=== PATIENT | female | born 1955 | race Caucasian/White ===

== ENCOUNTER → 2017-10-16 11:46 | Outpatient (CLI) | payer OTHER, SELFPAY ==
--- NOTE | 2017-10-16 11:53 | RAD_ITS ---
STUDY: X-RAY - RIGHT RADIUS AND ULNA REASON FOR EXAM: Female, 62 years old. Midforearm pain TECHNIQUE: 2 view(s) of the forearm. COMPARISON: None. FINDINGS: There is no demonstrated soft tissue swelling. Normal visualized radius. 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 The right radius and ulna are otherwise unremarkable. Electronically Signed: Conrad Worley MD at 21:07 EDT , Service support ,
== END ==
PROVIDERS: Family Provider Internal Medicine; PCP Internal Medicine; Visit Provider Internal Medicine
DX: M79.631 Pain in right forearm (principal)
CPT/HCPCS: 73090

== ENCOUNTER → 2019-08-02 13:48 | Outpatient (CLI) | payer MEDICARE, OTHER, SELFPAY ==
[2019-07-25 11:14] VITALS: BMI 24.7
--- NOTE | 2019-08-02 13:52 | BI_ITS ---
MAMMOGRAPHY - BILATERAL SCREENING REASON FOR EXAM: Female, 64 years old. Routine annual screening examination. PERTINENT HISTORY: Non-contributory. TECHNIQUE: Digital bilateral breast vargas (3D mammographic acquisition) in the CC and MLO projections. 2-D mediolateral oblique (MLO) and craniocaudad (CC) views of both breasts were obtained. CAD: Full Field Digital Mammography with Computer Added Detection was performed. COMPARISON: Comparison is made with prior examination is March 15, 2016 and December 27, 2012. FINDINGS: Breast Composition: The breasts are heterogeneously dense, which may obscure small masses. There are no dominant masses or suspicious calcifications. Stable small bilateral axillary lymph nodes. A pacemaker battery pack is seen in the right axillary region. No other significant abnormalities are identified. There has been no significant change since the prior study. BI/SCREEN MAMM (CAD) W/VARGAS BILAT IMPRESSION: Stable bilateral screening mammogram. Yearly follow-up mammogram recommended. (A) ASSESSMENT CATEGORY: BIRADS Category 2: Benign. A letter regarding these results will be sent to the patient by the facility within 30 days. Approximately 10% of breast cancers are not detected by mammography. A normal mammogram should not delay biopsy of a clinically suspicious abnormality. [id number] Electronically Signed: Israel Mazariegos, at 14:55 EST , Service support ,
== END ==
PROVIDERS: PCP Internal Medicine; Referring Provider Internal Medicine; Visit Provider Internal Medicine
DX: Z12.31 Encounter for screening mammogram for malignant neoplasm of breast (principal)
CPT/HCPCS: 77063; 77067

== ENCOUNTER → 2019-11-11 14:34 | Outpatient (CLI) | payer MEDICARE, OTHER, SELFPAY ==
[2019-07-25 11:14] VITALS: BMI 24.7
--- NOTE | 2019-11-11 14:44 | RAD_ITS ---
STUDY: X-RAY CHEST REASON FOR EXAM: Female, 64 years old. PATIENT STATES HAVING HER PPM GENERATOR CHANGED. ORIGINAL PLACEMENT 2002. TECHNIQUE: PA and lateral views of the chest. COMPARISON: Comparison is made with prior examination March 02, 2016. FINDINGS: Hyperinflation. Scattered calcified granulomas. There is no demonstrated pleural abnormality. Normal size heart. A left-sided dual-chamber pacemaker is seen. Normal mediastinum and aristeo. Normal visualized pulmonary arteries. There is atherosclerotic tortuosity of the aortic arch and descending thoracic aorta. There are mild degenerative changes of the visualized thoracic spine. Normal visualized ribs, clavicles, and shoulders. There is no demonstrated abnormality of the visualized soft tissue structures of the upper abdomen. RAD/Chest PA and Lateral IMPRESSION: Hyperinflation. The lungs are clear. Electronically Signed: Israel Mazariegos, at 15:37 EDT , Service support ,
[2019-11-11 15:54] LABS: International Normalized Ratio 1.1; Prothrombin Time (Protime)PT. 13.5 SECONDS (11.7-14.9)
[2019-11-11 15:59] LABS: Anion Gap 7 (5-15); BUN 14 mg/dL (7-18); BUN/Creat Ratio 22.8 RATIO (10-20); Calcium,Total 9.2 mg/dL (8.5-10.1); Chloride 108 mmol/L (98-107); Creatinine, Serum 0.61 mg/dL (0.55-1.02); EST Glomerular Filtration Rate 104 mL/min (>60); Est Glom Filt Rate - Afr Amer 126 mL/min (>60); Glucose 103 mg/dL (74-106); Potassium 3.7 mmol/L (3.5-5.1); Sodium Level 138 mmol/L (136-145)
== END ==
PROVIDERS: PCP Internal Medicine; Visit Provider Internal Medicine Cardiovascular Disease
DX: I49.5 Sick sinus syndrome (principal); R55 Syncope and collapse; Z95.0 Presence of cardiac pacemaker; I47.1 Supraventricular tachycardia
CPT/HCPCS: 36415; 71046; 80048; 85610

== ENCOUNTER 2019-11-29 09:45 | Day surgery (SDC) | payer MEDICARE, OTHER, SELFPAY ==
[2019-07-25 11:14] VITALS: BMI 24.7
[2019-11-18 10:14] VITALS: BMI 25.2
--- NOTE | 2019-11-18 12:26 | HP_ITS ---
HPI HPI History of Present Illness Surgical H&P: Yes Details: KHARI DYSON, is a 64 year old white female who presents to the office today for for outpatient cardiovascular follow-up of her history of underlying syncope, sick sinus syndrome, and permanent pacemaker placement. Patient's dual-chamber pacemaker evaluation from 11/11/2019 showed the battery has reached ERT on 10/31/2019. She is scheduled undergo generator change on 11/29/[address] Samuels. She denies chest, arm, jaw, or neck discomfort. Her exercise tolerance is stable. She denies symptoms of CHF, palpitations, lightheadedness, dizziness, near syncope, or syncopal episodes. She denies edema or claudication issues. She denies orthopnea, PND, fever, chills, blood in urine, blood in stool, myalgia, or unexplainable fatigue. Intake Vital Signs 11/18/19 Height 5 ft 11/18/19 Weight: 129 lb 11/18/19 BMI 25.2 11/18/19 BP 145/85 H 11/18/19 Blood Pressure Location Lt brachial 11/18/19 Position Sitting 11/18/19 Respiration 18 11/18/19 Pulse 66 11/18/19 Pulse Source Monitor 11/18/19 Pulse Oximetry (%) 97 Intake Visit Reasons: H&P FOR GEN CHANGE Medicare Nurse Required: No Accompanied by: None Is patient in pain?: No Allergies enoxaparin sodium [From Lovenox] Allergy (Verified 11/18/19 10:14) Anaphylaxis Sulfa (Sulfonamide Antibiotics) Allergy (Verified 11/18/19 10:14) Rash Medications losartan 50 mg tablet 50 mg PO BID tab 10/04/17 [History Confirmed 11/18/19] metoprolol succinate 100 mg tablet,extended release 24 hr 100 mg PO QDAY #90 tab 02/08/18 [Rx Confirmed 11/18/19] levothyroxine 88 mcg tablet 88 mcg PO QDAY 02/14/18 [History Confirmed 11/18/19] paroxetine HCl 10 mg tablet 10 mg PO QDAY 02/19/18 [History Confirmed 11/18/19] amlodipine 10 mg tablet 10 mg PO QDAY #90 tab 04/23/18 [Rx Confirmed 11/18/19] atorvastatin 20 mg tablet 20 mg PO QHS #90 tab 04/23/18 [Rx Confirmed 11/18/19] hydrochlorothiazide 12.5 mg tablet 12.5 mg PO DAILY #90 tab 11/18/19 [Rx Confirmed 11/18/19] liothyronine 5 mcg tablet 5 mcg PO DAILY 11/18/19 [History Confirmed 11/18/19] [facility] Social History (Updated 11/18/19 @ 12:26 by DAWIT Mahajan) Smoking Status: Current some day smoker alcohol intake: current substance use type: does not use ROS Const Const: Negative for fatigue, weakness, body ache, fever(s) or chills ENT ENT: Negative for dizziness Cardio Chest Pain: No Palpitations: No Edema: None Muscle aches with walking: None Resp Respiratory: Negative for SOB with activity, SOB at rest, SOB orthopnea\SOB lying down or paroxysmal nocturnal dyspnea GI GI: Negative nausea, vomiting blood/hematemesis, bright, red blood in stools or black,tarry stools : Negative for hematuria or frequent nighttime urination/ nocturia Musc Musc: Negative for muscle aches/ myalgia Skin Skin: Negative non-healing lesions or rash Neuro Neuro: Negative for dizziness, lightheadedness, near syncope, syncope, orthostatic symptoms or weakness Endo Endo: Negative for fatigue Allergy Allergy/Immunology: Negative for rash Cardiology Exam Const Appearance: cooperative, healthy appearing, comfortable and no acute distress Nutritional Appearance: average body habitus and well nourished Orientation: alert, awake and oriented x3 Head Head: normal to inspection Ears: hearing grossly normal bilaterally Nose: external nose normal Face and Sinus: face symmetric Mouth: oral mucosae normal Eyes General: appearance normal, both eyes and all related structures Eyelids: eyelids normal EOM: EOM intact bilaterally Neck Neck: normal visual inspection and no JVD Carotids: normal carotid upstroke Chest Chest inspection: normal inspection of the chest, symmetric chest movement and normal respiratory effort; negative cough Auscultation: Bilateral: Clear to Auscultation Cardio Rate: regular rate Rhythm: regular rhythm Heart sounds: S1 normal and S2 normal; negative rub, gallop or murmur GI GI: normal to inspection Neuro General: alert, awake, oriented x3 and CN's II-XI intact bilaterally Skin Skin: no rashes or lesions noted Extremities Pulses: Normal: Right Posterior Tibial Pulse, Left Posterior Tibial Pulse, Right Radial Pulse, Left Radial Pulse Lower Extremity Edema: None: Bilateral Psych Psychological: normal affect Assessment & Plan 1. Sick sinus syndrome I49.5 Plan Patient is status post permanent pacemaker for this. Orders Orders: 12 Lead EKG performed by [facility] Today 2. Presence of cardiac pacemaker Z95.0 Plan Her most recent pacemaker evaluation shows that she has achieved GUME on 10/31/2019. She will proceed with generator change. She will continue to follow with pacemaker clinic on a routine basis. Orders Orders: 12 Lead EKG performed by [facility] Today 3. Essential (primary) hypertension I10 Plan Patient's blood pressure is well-controlled today in the office. We will continue to monitor this. We will not make any medication regimen changes. 4. Hyperlipidemia, unspecified hyperlipidemia type E78.5 Plan She will continue current statin medication. 5. Syncope and collapse R55 Plan There has not been any reoccurrence. At this time her blood pressure and heart rate are stable. We will continue to monitor. Orders Orders: 12 Lead EKG performed by [facility] Today Plan Detail Other Medications New: hydrochlorothiazide 12.5 mg PO DAILY 90 tabs 6RF Additional Comments Thank you for allowing us to participate in the patients plan of care, if you have any questions please do not hesitate to call. This note was generated using a voice recognition system and there may be incorrect words, spelling or punctuation that were not noted when reviewing the office note prior to saving. Follow Up keep as is Coding Level of Care Code Off vis,est,level 3 Diagnoses Sick sinus syndrome I49.5 Presence of cardiac pacemaker Z95.0 Essential (primary) hypertension I10 Hyperlipidemia, unspecified hyperlipidemia type E78.5 ??Hyperlipidemia type: unspecified Syncope and collapse R55 Coding Level of Care Code Off vis,est,level 3 Diagnoses Sick sinus syndrome I49.5 Presence of cardiac pacemaker Z95.0 Essential (primary) hypertension I10 Hyperlipidemia, unspecified hyperlipidemia type E78.5 ??Hyperlipidemia type: unspecified Syncope and collapse R55 Supplemental Info Supplemental Information Echocardiogram from 11/12/2013: Impressions: Left ventricle: Normal in size. Wall thickness is normal. LV function is normal. There are no segmental abnormalities. Ejection fraction is normal, estimated at 60-65%. All chambers are normal in size. Mild mitral insufficiency, mild pulmonic valve insufficiency and mild tricuspid valve insufficiency. Estimated right ventricular systolic pressure is normal at 30 mmHg. No mitral valve prolapse. No pericardial effusion. Stress echocardiogram from 11/30/2009: Conclusions Exercise stress echo is negative for ischemia at 98% maximum predicted heart rate at 10.2 METS. Labs LDL Cholesterol 110 mg/dL (0-130) 10/12/15 HDL Cholesterol 98 mg/dL (40-) 10/12/15 Triglycerides 97 mg/dL (-199) 10/12/15 VLDL Cholesterol 19 mg/dL (5-40) 10/12/15 Diagnostics Electrocardiogram 11/18/19 Pacemaker Check 11/11/19 Chest X-Ray 11/11/19 11/18/19 1226 <Electronically signed by Willis Wise N PDeanne> Date _ Willis Wise [employer]
--- NOTE | 2019-11-27 11:11 | HP.PCM_ITS ---
History and Physical Date of Admission: 11/29/19 KHARI DYSON is a 64 year old white female who presents to [facility] today for for outpatient cardiovascular follow-up of her history of underlying syncope, sick sinus syndrome, and permanent pacemaker placement. Patient's dual-chamber pacemaker evaluation from 11/11/2019 showed the battery has reached ERT on 10/31/2019. She is scheduled undergo generator change on 11/29/[address] Samuels today. She denies chest, arm, jaw, or neck discomfort. Her exercise tolerance is stable. She denies symptoms of CHF, palpitations, lightheadedness, dizziness, near syncope, or syncopal episodes. She denies edema or claudication issues. She denies orthopnea, PND, fever, chills, blood in urine, blood in stool, myalgia, or unexplainable fatigue. 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 Accompanied by: None Is patient in pain?: No Allergies enoxaparin sodium [From Lovenox] Allergy (Verified 11/18/19 10:14) Anaphylaxis Sulfa (Sulfonamide Antibiotics) Allergy (Verified 11/18/19 10:14) Rash Medications losartan 50 mg tablet 50 mg PO BID tab 10/04/17 [History Confirmed 11/18/19] metoprolol succinate 100 mg tablet,extended release 24 hr 100 mg PO QDAY #90 tab 02/08/18 [Rx Confirmed 11/18/19] levothyroxine 88 mcg tablet 88 mcg PO QDAY 02/14/18 [History Confirmed 11/18/19] paroxetine HCl 10 mg tablet 10 mg PO QDAY 02/19/18 [History Confirmed 11/18/19] amlodipine 10 mg tablet 10 mg PO QDAY #90 tab 04/23/18 [Rx Confirmed 11/18/19] atorvastatin 20 mg tablet 20 mg PO QHS #90 tab 04/23/18 [Rx Confirmed 11/18/19] hydrochlorothiazide 12.5 mg tablet 12.5 mg PO DAILY #90 tab 11/18/19 [Rx Confirmed 11/18/19] liothyronine 5 mcg tablet 5 mcg PO DAILY 11/18/19 [History Confirmed 11/18/19] [facility] Social History (Updated 11/18/19 @ 12:26 by DAWIT Mahajan) Smoking Status: Current some day smoker alcohol intake: current substance use type: does not use ROS Const Const: Negative for fatigue, weakness, body ache, fever(s) or chills ENT ENT: Negative for dizziness Cardio Chest Pain: No Palpitations: No Edema: None Muscle aches with walking: None Resp Respiratory: Negative for SOB with activity, SOB at rest, SOB orthopnea\SOB lying down or paroxysmal nocturnal dyspnea GI GI: Negative nausea, vomiting blood/hematemesis, bright, red blood in stools or black,tarry stools : Negative for hematuria or frequent nighttime urination/ nocturia Musc Musc: Negative for muscle aches/ myalgia Skin Skin: Negative non-healing lesions or rash Neuro Neuro: Negative for dizziness, lightheadedness, near syncope, syncope, orthostatic symptoms or weakness Endo Endo: Negative for fatigue Allergy Allergy/Immunology: Negative for rash Cardiology Exam Const Appearance: cooperative, healthy appearing, comfortable and no acute distress Nutritional Appearance: average body habitus and well nourished Orientation: alert, awake and oriented x3 Head Head: normal to inspection Ears: hearing grossly normal bilaterally Nose: external nose normal Face and Sinus: face symmetric Mouth: oral mucosae normal Eyes General: appearance normal, both eyes and all related structures Eyelids: eyelids normal EOM: EOM intact bilaterally Neck Neck: normal visual inspection and no JVD Carotids: normal carotid upstroke Chest Chest inspection: normal inspection of the chest, symmetric chest movement and normal respiratory effort; negative cough Auscultation: Bilateral: Clear to Auscultation Cardio Rate: regular rate Rhythm: regular rhythm Heart sounds: S1 normal and S2 normal; negative rub, gallop or murmur GI GI: normal to inspection Neuro General: alert, awake, oriented x3 and CN's II-XI intact bilaterally Skin Skin: no rashes or lesions noted Extremities Pulses: Normal: Right Posterior Tibial Pulse, Left Posterior Tibial Pulse, Right Radial Pulse, Left Radial Pulse Lower Extremity Edema: None: Bilateral Psych Psychological: normal affect Assessment & Plan 1. Sick sinus syndrome I49.5 Plan Patient is status post permanent pacemaker for this. 2. Presence of cardiac pacemaker Z95.0 Plan Her most recent pacemaker evaluation shows that she has achieved GUME on 10/31/2019. She will proceed with generator change. She will continue to follow with pacemaker clinic on a routine basis. 3. Essential (primary) hypertension I10 Plan Patient's blood pressure is well-controlled today in the office. We will continue to monitor this. We will not make any medication regimen changes. 4. Hyperlipidemia, unspecified hyperlipidemia type E78.5 Plan She will continue current statin medication. 5. Syncope and collapse R55 Plan There has not been any reoccurrence. At this time her blood pressure and heart rate are stable. We will continue to monitor. Thank you for allowing us to participate in the patients plan of care, if you have any questions please do not hesitate to call. This note was generated using a voice recognition system and there may be incorrect words, spelling or punctuation that were not noted when reviewing the office note prior to saving.
[2019-11-28 13:27] VITALS: BMI 25.2
--- NOTE | 2019-11-29 12:10 | CL.IE_ITS ---
Patient: KHARI DYSON Study Date: 11/29/2019 Performing: Bassem Samuels MD : [id number] Age: 64 Gender: female PROCEDURES PERFORMED [id number] REMOVAL+REPLACEMENT PACER-DUAL LEAD INDICATIONS Sinoatrial node dysfunction/Sick sinus syndrome PROCEDURE DETAILS The patient was brought to the Catheterization Lab in the postabsorptive nonsedated state. Infor med consent was obtained prior to the procedure. Local anesthetic was given subcutaneously to the le ft upper chest area with Lidocaine 2%. Incision was made to the left upper chest. PPM generator was r emoved. PPM atrial lead testing performed. PPM ventricular lead testing performed. PPM ventricular le ad testing performed. Device pocket was irrigated with antibiotic. The PPM generator was sutured in p lace with 2-0 Vicryl. Subcutaneous closure was completed with 3-0 Vicryl. Skin closure was completed with 4-0 Vicryl. Steri-strips applied to Lt chest area. The patient tolerated the procedure well. Estimated Blood Loss: < 10 mls IMPLANTED / EX-PLANTED DEVICES IMPLANTED DEVICE(S): PPM Generator - Director Outcomes: SureGene, Model # [id number] , Serial # [id number] DEVICE PARAMETERS DEVICE PARAMETERS: Mode - dddr lower rate - 65 upper rate - 130 rate response off CONCLUSIONS / RECOMMENDATIONS Device Conclusions: Successful implantation of a dual chamber pacemaker battery change and replacemen t Device Recommendations: Follow up with Primary Care Physician PROCEDURE MEDICATIONS Versed 1 mg IV Fentanyl 50 mcg IV Versed 1 mg IV Oxygen: 2 L/min via nasal cannula Ancef 1 Gm IV @ 11/29/2019 11:36:39 Signed By Bassem Samuels MD On 11/29/2019 12:10:13 Bassem Samuels MD
== END 2019-11-29 13:05 | disposition home or self-care (01) ==
LOC: CLSP 09:46
PROVIDERS: PCP Internal Medicine; Referring Provider Internal Medicine Cardiovascular Disease; Visit Provider Internal Medicine Cardiovascular Disease
DX: Z45.010 Encounter for checking and testing of cardiac pacemaker pulse generator [battery] (principal); I49.5 Sick sinus syndrome; I10 Essential (primary) hypertension; E78.5 Hyperlipidemia, unspecified; Z79.899 Other long term (current) drug therapy; F17.200 Nicotine dependence, unspecified, uncomplicated
CPT/HCPCS: 33228; 99152; 99153; J7040; J7050

== ENCOUNTER → 2020-11-19 13:07 | Outpatient (CLI) | payer MEDICARE, OTHER, SELFPAY ==
[2019-11-28 13:27] VITALS: BMI 25.2
--- NOTE | 2020-11-19 13:11 | BI_ITS ---
MAMMOGRAPHY - BILATERAL SCREENING REASON FOR EXAM: Female, 65 years old. Routine annual screening examination. PERTINENT HISTORY: Non-contributory. TECHNIQUE: Digital bilateral breast vargas (3D mammographic acquisition) in the CC and MLO projections. 2-D mediolateral oblique (MLO) and craniocaudad (CC) views of both breasts were obtained. CAD: Full Field Digital Mammography with Computer Added Detection was performed. COMPARISON: Comparison is made with prior examination dated 08/02/2019 and 03/15/2016. FINDINGS: Breast Composition: The breasts are heterogeneously dense, which may obscure small masses. There are no dominant masses or suspicious calcifications. Stable small benign-appearing bilateral axillary lymph nodes. A pacemaker battery pack is once again seen in the left axillary region. No other significant abnormalities are identified. There has been no significant change since the prior study. BI/SCRN MAMM (CAD)W/VARGAS BILAT IMPRESSION: Stable bilateral screening mammogram. Yearly follow-up mammogram recommended. (A) ASSESSMENT CATEGORY: BIRADS Category 2: Benign. A letter regarding these results will be sent to the patient by the facility within 30 days. Approximately 10% of breast cancers are not detected by mammography. A normal mammogram should not delay biopsy of a clinically suspicious abnormality. [id number] Electronically Signed: Israel Mazariegos MD at 14:31 EDT , Service support ,
--- NOTE | 2020-11-19 13:21 | BD_ITS ---
STUDY: DUAL ENERGY X-RAY ABSORPTIOMETRY / DXA REASON FOR EXAM: Female, 65 years old. Z780. Patient is postmenopausal. No loss of height. TECHNIQUE: Bone Mineral Density (BMD) measurements of lumbar spine and bilateral hips were obtained. COMPARISON: Comparison is made with prior study dated 03/15/2016. FINDINGS: Lumbar Spine (L1-L4): g/cm2 (1.548) / T-score (2.9) / Z-score (4.5) Findings are suggestive of normal bone density with a low fracture risk. Left Femur Total: g/cm2 (0.825) / T-score (-1.4) / Z-score (-0.2) Left Femoral Neck: g/cm2 (0.812) / T-score (-1.6) / Z-score (-0.1) Right Femur Total: g/cm2 (0.861) / T-score (-1.2) / Z-score (0.1) Right Femoral Neck: g/cm2 (0.829) / T-score (-1.5) / Z-score (0.0) The T-Scores on the most recent prior examination were: Lumbar Spine (L1-L4): There has been improvement of bone density since the previous examination. Left Femur Total: which represents a worsening of 2.6%. Right Femur Total: which represents a worsening of 1.6%. BD/Dexa Bone Density Study IMPRESSION: The patient is considered osteopenic as outlined below according to World Remy Organization (WHO) criteria with a moderate fracture risk. There has been worsening of bone density since the previous examination. Reference Information: The T-score is the number of standard deviations above or below the standard which is normal for young adults at their peak bone mineral density. The World Health Organization (WHO) interprets the T-scores as follows: Above -1 Normal bone density Between -1 and -2.5 Osteopenia Equal to / or below -2.5 Osteoporosis As a practical clinical guideline, osteopenia may be graded as follows: Mild -1 through -1.5 Moderate -1.6 through -2.0 Severe -2.1 through -2.4 The Z-score is the number of standard deviations above or below age-matched controls. A Z-score of less than -1.5 would be considered abnormal. References: 1. NIH Osteoporosis and Related Bone Diseases www osteo.org 2. International Society for Clinical Densitometry www iscd.org 3. National Osteoporosis Foundation www nof.org Electronically Signed: Israel Mazariegos MD at 15:33 EDT , Service support ,
== END ==
PROVIDERS: PCP Internal Medicine; Referring Provider Internal Medicine; Visit Provider Internal Medicine
DX: Z12.31 Encounter for screening mammogram for malignant neoplasm of breast (principal); Z78.0 Asymptomatic menopausal state
CPT/HCPCS: 77063; 77067; 77080

== ENCOUNTER → 2021-01-21 07:38 | Outpatient (CLI) | payer MEDICARE, OTHER, SELFPAY ==
[2019-11-28 13:27] VITALS: BMI 25.2
--- NOTE | 2021-01-21 07:52 | MRI_ITS ---
STUDY: MRI RIGHT KNEE REASON FOR EXAM: Medial right knee pain for more than one year. TECHNIQUE: Standardized fat and water weighted pulse sequences were obtained in all 3 orthogonal planes. COMPARISON: None. FINDINGS: There is a horizontal tear of the inferior articular surface of the posterior horn of the medial meniscus (proton-density sagittal images 27-29). There is mild peripheral subluxation of the medial meniscus. There is arthrosis of the medial femorotibial compartment with marginal osteophytes, mild subchondral cystic change of the medial femoral condyle and chondral loss (T2 sagittal image 16). There is a small focus of bone edema of the medial tibial plateau (T2 coronal images 18, 19), a stress phenomenon. Normal medial collateral ligamentous complex (MCL). Normal distal semimembranosus, gracilis and semitendinosus tendons. Normal lateral meniscus. Normal hyaline cartilage of the lateral femorotibial compartment. Normal lateral femoral condyle and tibial plateau. Normal proximal tibiofibular articulation. Normal lateral collateral (fibular) ligament. Normal popliteus tendon. Normal biceps femoris tendon. Normal anterior cruciate ligament (ACL). Normal posterior cruciate ligament (PCL). Normal congruent patellofemoral articulation. There is arthrosis of the patellofemoral compartment with chondral thinning of the inferior femoral trochlea (T2 axial image 15). Normal medial and lateral patellar retinaculum. Normal quadriceps tendon. Normal patellar tendon. Normal Hoffa''s fat pad. There is a minimal volume of fluid in the knee joint. There is an intra-articular body anterior to the distal anterior cruciate ligament (proton-density coronal images 20, 21) measuring 0.7 cm in transverse dimension. There is a popliteal cyst measuring 7.1 cm in length (T2 sagittal images 12-20). The otherwise visualized osseous structures are unremarkable. MRI/Lower Ext Joint Only (Routine) IMPRESSION: Medial meniscal tear. Arthrosis of the medial femorotibial and patellofemoral compartments. Small focus of bone edema of the medial tibial plateau, a stress phenomenon. Intra-articular body. Popliteal cyst. Electronically Signed: Derrell Seals MD at 9:38 EDT Tel , Service support ,
[2021-01-21 08:35] VITALS: BP 178/90; PULSE 80; RESP 16; O2SAT 94
[2021-01-21 08:57] VITALS: BP 154/91; PULSE 80; RESP 16; O2SAT 95
[2021-01-21 09:08] VITALS: BP 161/91; PULSE 80; RESP 16
== END ==
PROVIDERS: PCP Internal Medicine; Referring Provider Specialist; Visit Provider Specialist
DX: M25.561 Pain in right knee (principal); G89.29 Other chronic pain
CPT/HCPCS: 73721

== ENCOUNTER → 2021-02-19 10:19 | Outpatient (CLI) | payer MEDICARE, OTHER, SELFPAY ==
[2019-11-28 13:27] VITALS: BMI 25.2
--- NOTE | 2021-02-19 10:30 | EKG12_ITS ---
Test Reason : PRE OP Blood Pressure : / mmHG Vent. Rate : 065 BPM Atrial Rate : 065 BPM P-R Int : 196 ms QRS Dur : 078 ms QT Int : 428 ms P-R-T Axes : 048 053 036 degrees QTc Int : 445 ms Atrial-paced rhythm Abnormal ECG Confirmed by CODY MCCARTNEY, LYUDMILA ([id number]), school photograph editor KENNETH GONGORA ([id number]) on 02/23/2021 8:56:03 AM Referred By: Martha Hills Confirmed By:LYUDMILA ROSS MD
--- NOTE | 2021-02-19 10:46 | RAD_ITS ---
STUDY: X-RAY CHEST REASON FOR EXAM: Female, 65 years old. Preoperative evaluation. TECHNIQUE: Frontal and lateral views of the chest. COMPARISON: 11/11/2019. FINDINGS: Stable mild hyperexpansion. There is no demonstrated pleural abnormality. Stable mild cardiac enlargement with dual lead cardiac pacer. Normal mediastinum and aristeo. Normal visualized pulmonary arteries. Normal visualized aortic arch and descending thoracic aorta. Normal visualized thoracic spine. Normal visualized ribs, clavicles, and shoulders. There is no demonstrated abnormality of the visualized soft tissue structures of the upper abdomen. RAD/Chest PA and Lateral IMPRESSION: Stable chest with no acute or active cardiopulmonary disease. Electronically Signed: Alberto Diana MD at 10:48 EDT , Service support ,
[2021-02-19 11:06] LABS: Absolute Lymphocyte Count 2.99 X10^3/uL (0.83-4.51); Absolute Neutrophil Count 3.2 X10^3/uL (2.0-7.7); Basophil# 0.06 X10^3/uL; Basophil% 0.8 % (0-1); Eosinophil# 0.35 X10^3/uL; Eosinophils% 4.8 % (0-5); Hematocrit 44.2 % (37-47); Hemoglobin 14.8 g/dL (12.0-15.0); Lymphocyte # 2.99 X10^3/ul (0.83-4.51); Lymphocyte % 41.4 % (19-41); Mean Corp Hgb Conc 33.5 g/dL (32-36); Mean Corpuscular Hgb 30.7 pg (27.0-32.0); Mean Corpuscular Volume 91.7 fL (81-99); Mean Platelet Vol. 10.4 fl (6.2-12.0); Monocyte# 0.65 X10^3/uL; NRBC Flagged by Analyzer 0 % (0-5); Neutrophil # 3.15 X10^3/uL (2.7-7.7); Neutrophil % 43.6 % (47-70); Platelet Count 259 K/mm3 (150-450); RBC Distribution Width CV 14.4 % (11.6-14.6); RBC Distribution Width SD 48.7 fl (35.1-43.9); Red Blood Count 4.82 M/mm3 (4.2-5.4); White Blood Count 7.2 K/mm3 (4.4-11.0)
[2021-02-19 11:29] LABS: Anion Gap 5 (5-15); BUN 17 mg/dL (7-18); BUN/Creat Ratio 25.7 RATIO (10-20); Calcium,Total 9.1 mg/dL (8.5-10.1); Chloride 104 mmol/L (98-107); Creatinine, Serum 0.66 mg/dL (0.55-1.02); EST Glomerular Filtration Rate 95 mL/min (>60); Est Glom Filt Rate - Afr Amer 115 mL/min (>60); Glucose 110 mg/dL (74-106); Potassium 3.9 mmol/L (3.5-5.1); Sodium Level 139 mmol/L (136-145)
== END ==
PROVIDERS: PCP Internal Medicine; Referring Provider Physician Assistant Surgical; Visit Provider Physician Assistant Surgical
DX: Z01.818 Encounter for other preprocedural examination (principal); Z01.811 Encounter for preprocedural respiratory examination; Z01.810 Encounter for preprocedural cardiovascular examination
CPT/HCPCS: 36415; 71046; 80048; 85025; 93005

== ENCOUNTER 2021-09-14 11:31 | Outpatient (CLI) | payer MEDICARE, OTHER, SELFPAY ==
[2021-09-14 13:18] LABS: AST(SGOT) 27 U/L (15-37); Alanine Aminotransfer ALT/SGPT 27 U/L (13-56); Alkaline Phosphatase 73 U/L (45-117); Bilirubin, Direct 0.12 mg/dL (0.00-0.30); Cholesterol 269 mg/dL (200); Globulin 4.1 g/dL (2.2-4.2); High Density Lipoprotein 89 mg/dL; Protein, Total 8.1 g/dL (6.4-8.2); Triglycerides 123 mg/dL; Very Low Density Lipoprotein 25 mg/dL (5-40)
== END 2021-09-14 23:59 | disposition home or self-care (01) ==
LOC: LAB 11:34
PROVIDERS: PCP Internal Medicine; Referring Provider Nurse Practitioner Family; Visit Provider Nurse Practitioner Family
DX: E78.5 Hyperlipidemia, unspecified (principal)
CPT/HCPCS: 36415; 80061; 80076

== ENCOUNTER 2021-10-04 14:05 | Emergency (ER) | payer MEDICARE, OTHER, SELFPAY ==
[2021-10-04 14:06] VITALS: BP 120/85; PULSE 68; RESP 15; TEMP 36.4; O2SAT 98; BMI 25.8
--- NOTE | 2021-10-04 14:42 | ED.VIS.GI ---
HPI HPI - GI History of Present Illness Chief Complaint: Abd Pain Detail of Chief Complaint: Left upper quadrant abdominal pain x3 weeks Informant: patient Abdominal Pain/Flank Pain Onset: Weeks Context: Sudden Onset Timing: Continuous Quality: - (Pain) Location: LUQ Current Severity: Moderate Maximum Severity: Severe Worsened by: Car ride, Food and Movement Relieved by: Not Relieved By Antacids, Food and Remaining Still Nausea/Vomiting/Emesis GI Symptom: Negative for Nausea and Vomiting Diarrhea/Melena/Hematochezia GI Symptom: Positive for Diarrhea (Diarrhea if she eats greasy or fatty foods. Also noticed fat in her stool); Negative for Melena and Hematochezia Associated Symptoms Associated Symptoms: Positive for Urgency; Negative for Dysuria, Frequency and Hematuria LMP: Postmenopausal Narrative Narrative: Patient is a 66-year-old woman who presents because of persistent left upper quadrant abdominal pain for the past 3 weeks. There is no precipitating or alleviating factors. It can be made worse with movement, deep breathing, food. She denies fever, chills night sweats. She denies cough or shortness of breath. She does admit to smoking 1/4 pack/day. She denies history of VTE. She denies leg pain, swelling or discoloration. She has no risk factors for VTE. She denies history of biliary disease, pancreatitis or peptic ulcer disease. There is no history of trauma. She does have history of kidney stones. Prior similar symptoms: No Recent Illness/Hospitalization: No [facility] Medical History Essential hypertension GERD (gastroesophageal reflux disease) History of kidney stones History of seizures Hyperlipidemia Hypothyroidism Presence of cardiac pacemaker (11/29/19) Sick sinus syndrome Supraventricular tachycardia Syncope and collapse Home Medications losartan 50 mg tablet 50 mg PO BID tab 10/04/17 [History Last Taken Unknown] metoprolol succinate 100 mg tablet,extended release 24 hr 100 mg PO QDAY #90 tab 02/08/18 [Rx Last Taken Unknown] levothyroxine 88 mcg tablet 88 mcg PO QDAY 02/14/18 [History Last Taken 11/29/19] paroxetine HCl 10 mg tablet 10 mg PO QDAY 02/19/18 [History Last Taken Unknown] amlodipine 10 mg tablet 10 mg PO QDAY #90 tab 10/15/18 [Rx Last Taken Unknown] liothyronine 5 mcg tablet 5 mcg PO DAILY 11/18/19 [History Last Taken Unknown] hydrochlorothiazide 12.5 mg tablet 12.5 mg PO DAILY #90 tab 12/17/20 [Rx Last Taken Unknown] atorvastatin 20 mg tablet 20 mg PO QHS #90 tab 09/17/21 [Rx Last Taken Unknown] Allergy/AdvReac Type Severity Reaction Status Date / Time enoxaparin sodium Allergy Anaphylaxis Verified 09/13/21 13:32 [From Lovenox] Sulfa (Sulfonamide Allergy Rash Verified 09/13/21 13:32 Antibiotics) Family History Grandmother CVA (cerebral vascular accident) Grandfather CHF (congestive heart failure) Father CVA (cerebral vascular accident) CHF (congestive heart failure) Brother CAD (coronary artery disease) Myocardial infarction Sister Hypertension CHF (congestive heart failure) Sister Mitral valve prolapse Surgical History History of arthroscopic knee surgery (~02/2021) History of foot surgery History of hernia repair History of tonsillectomy History of tubal ligation Hx of appendectomy Social History (Updated 10/04/21 @ 14:[address] Ty Grant MD) household members: none Smoking Status: Current some day smoker tobacco type: cigarettes alcohol intake: current alcohol intake frequency: a few times a month substance use type: does not use caffeine: Yes Type: coffee Number of servings: 2 ROS ROS ED Constitutional Constitutional ED: Denies chills, fever(s), subjective, sweats or weight loss ENT ENT ED: Denies ear pain, rhinorrhea or sore throat Cardiovascular Cardiovascular: Denies chest pain, orthopnea, palpitations, paroxysmal nocturnal dyspnea or racing heartbeat Respiratory/Chest Respiratory/Chest: Denies cough, dyspnea, dyspnea on exertion, orthopnea, paroxysmal nocturnal dyspnea or sputum Gastrointestinal Gastrointestinal: Reports abdominal pain; Denies constipation, diarrhea, nausea or vomiting Genitourinary Genitourinary ED: Denies dysuria, hematuria or urinary frequency Musculoskeletal Musculoskeletal: Denies arthralgias, back pain, myalgias or neck pain Integumentary Denies Abrasions or rash Neurologic Neurologic: Denies headache(s), paresthesias or weakness Endocrine Endocrinology: Denies polydipsia, polyphagia or polyuria Hematologic/Lymphatic Hematologic/Lymphatic: Reports other Details: Patient is on no anticoagulant. ; Denies easy bleeding or easy bruising EXAM Physical Exam Const Vital Signs: 10/04/21 14:06 10/04/21 15:31 Temperature 97.6 F L Temperature Source Oral Pulse Rate 68 65 Respiratory Rate 15 15 Blood Pressure 120/85 H 125/74 H Blood Pressure Mean 96 91 Pulse Ox 98 97 Oxygen Delivery Method Room Air Room Air Positive well nourished and well developed; Negative for unkempt General Appearance ED: well developed; Negative for unkempt, NAD or pallor HEENT Reports TM's clear and moist mucous membranes normocephalic and atraumatic Tympanic Membrane ED: Yes TM's clear Eyes PERRL and EOMs intact bilaterally General Eye ED: Negative for pale conjunctiva or scleral icterus Neck no lymphadenopathy, supple and no JVD Resp normal respiratory effort and clear to auscultation bilaterally Auscultation: Negative for rales, rhonchi or wheezes Cardio regular rate, regular rhythm, S1 normal heart sound, S2 normal heart sound and no murmurs GI no masses; Negative for non-tender or non-distended Inspection: abdominal distention Auscultation: hypoactive bowel sounds; Negative for normoactive bowel sounds Palpation: tender LUQ and guarding LUQ; Negative for soft, rigid, hepatomegaly, splenomegaly, mass or pulsatile mass Back/Spine no CVA tenderness Cervical Spine: Negative for cervical spine tenderness Thoracic Spine / Upper Back: Negative for thoracic spinal tenderness Lumbar Spine / Lower Back: Negative for lumbar spinal tenderness Extremity full ROM General Extremety ED: Yes edema; Negative for tenderness or other findings General Extremity: edema; Negative for other findings Neuro CN's II-XII intact bilaterally and no sensory deficits noted Sensorium / Orientation: alert, oriented to person, oriented to place and oriented to time Motor Exam: strength 5/5 throughout Psych mental status grossly normal and thought process normal Appearance: Negative for unkempt Skin no wounds General Skin Exam: Negative for jaundice or pallor Lesions: no lesions Rashes: no rashes MDM MDM MDM Narrative Medical decision making narrative: With left upper quadrant pain differential diagnosis would include pancreatitis, peptic ulcer disease, gallstone pancreatitis, problems with spleen, partial small bowel obstruction unlikely lower lobe pneumonia atypical presentation for kidney stones and she has history of multiple kidney stones and complains of urgency. Lab Data Attestation: I reviewed the patient's lab results. Lab results narrative: Laboratory work-up was unremarkable. Labs: Laboratory Results - last 24 hr 10/04/21 10/04/21 10/04/21 14:45 14:45 14:45 WBC 8.3 RBC 4.85 Hgb 15.8 H Hct 44.2 MCV 91.1 MCH 32.6 H MCHC 35.7 RDW Std Deviation 44.3 H RDW Coeff of Nora 13.2 Plt Count 273 MPV 10.2 Immature Gran % (Auto) 0.400 Neut % (Auto) 43.4 L Lymph % (Auto) 41.5 H Kershaw % (Auto) 10.1 H Eos % (Auto) 3.9 Baso % (Auto) 0.7 Absolute Neuts (auto) 3.6 Absolute Lymphs (auto) 3.44 Nucleated RBC % 0 Sodium 140 Potassium 3.3 L Chloride 105 Carbon Dioxide 26.0 Anion Gap 9 BUN 13 Creatinine 0.79 Estim Creat Clear Calc 41.19 Est GFR (MDRD) Af Amer 94 Est GFR (MDRD) Non-Af 77 BUN/Creatinine Ratio 16.5 Glucose 102 Lactic Acid 1.0 Calcium 9.5 Total Bilirubin 0.60 AST 26 ALT 31 Alkaline Phosphatase 83 Total Protein 7.9 Albumin 4.0 Globulin 3.9 Albumin/Globulin Ratio 1.0 Lipase 193 Urine Color Urine Clarity Urine pH Ur Specific [place] Urine Protein Urine Glucose (UA) Urine Ketones Urine Occult Blood Urine Nitrite Urine Bilirubin Urine Urobilinogen Ur Leukocyte Esterase Urine RBC Urine WBC Ur Squamous Epith Cells Urine Bacteria Urine Mucus 10/04/21 15:35 WBC RBC Hgb Hct MCV MCH MCHC RDW Std Deviation RDW Coeff of Nora Plt Count MPV Immature Gran % (Auto) Neut % (Auto) Lymph % (Auto) K[place]haw % (Auto) Eos % (Auto) Baso % (Auto) Absolute Neuts (auto) Absolute Lymphs (auto) Nucleated RBC % Sodium Potassium Chloride Carbon Dioxide Anion Gap BUN Creatinine Estim Creat Clear Calc Est GFR (MDRD) Af Amer Est GFR (MDRD) Non-Af BUN/Creatinine Ratio Glucose Lactic Acid Calcium Total Bilirubin AST ALT Alkaline Phosphatase Total Protein Albumin Globulin Albumin/Globulin Ratio Lipase Urine Color Yellow Urine Clarity Clear Urine pH 7.0 Ur Specific [place] 1.010 Urine Protein Negative Urine Glucose (UA) Normal Urine Ketones 5 H Urine Occult Blood 10 H Urine Nitrite Negative Urine Bilirubin Negative Urine Urobilinogen Normal Ur Leukocyte Esterase 25 H Urine RBC 0 SEEN Urine WBC 5-10 SEEN Ur Squamous Epith Cells 0 SEEN Urine Bacteria 0 SEEN Urine Mucus 0 SEEN Radiography Diagnostic Testing: Clinical Impression(s) from Imaging Studies Abdomen/Pelvis CT 10/04/21 16:24 IMPRESSION: No obstructive uropathy or suspicious solid renal lesion, there are punctate nonobstructing bilateral renal stones No free intraperitoneal fluid, air, or suspicious adenopathy Colonic diverticulosis Degenerative bony changes Electronically Signed: Jose Cruz Yi MD at 17:05 EDT Reading Location ID and State: [facility] / [place] , Service support , CT was obtained to determine etiology of her pain and rule out obstructing stone. CAT scan is unremarkable. Discharge Plan Triage Chief Complaint: Abd Pain ED Provider: Ty Grant Dx/Rx/DC Orders Clinical Impression: Abdominal pain, acute, left upper quadrant, Bilateral renal stones, Diverticulosis Instructions: ED Abdominal Pain Unkn Cause Fem Prescriptions: No Action paroxetine HCl [Paxil] 10 mg tablet 10 mg PO QDAY RF: 0 levothyroxine 88 mcg tablet 88 mcg PO QDAY RF: 0 liothyronine [Cytomel] 5 mcg tablet 5 mcg PO DAILY RF: 0 atorvastatin 20 mg tablet 20 mg PO QHS Qty: 90 RF: 3 losartan 50 mg tablet 50 mg PO BID RF: 0 metoprolol succinate [Toprol XL] 100 mg tablet extended release 24 hr 100 mg PO QDAY Qty: 90 RF: 3 amlodipine [Norvasc] 10 mg tablet 10 mg PO QDAY Qty: 90 RF: 3 hydrochlorothiazide 12.5 mg tablet 12.5 mg PO DAILY Qty: 90 RF: 6 Primary Care Provider: Roopa Gongora Referrals: Roopa Gongora DO [Primary Care Provider] - 3-5 Days if not improving Disposition Disposition: Home, Self Care
[2021-10-04 14:54] LABS: Absolute Lymphocyte Count 3.44 X10^3/uL (0.83-4.51); Absolute Neutrophil Count 3.6 X10^3/uL (2.0-7.7); Basophil# 0.06 X10^3/uL; Basophil% 0.7 % (0-1); Eosinophil# 0.32 X10^3/uL; Eosinophils% 3.9 % (0-5); Hematocrit 44.2 % (37-47); Hemoglobin 15.8 g/dL (12.0-15.0); Lymphocyte # 3.44 X10^3/ul (0.83-4.51); Lymphocyte % 41.5 % (19-41); Mean Corp Hgb Conc 35.7 g/dL (32-36); Mean Corpuscular Hgb 32.6 pg (27.0-32.0); Mean Corpuscular Volume 91.1 fL (81-99); Mean Platelet Vol. 10.2 fl (6.2-12.0); Monocyte# 0.84 X10^3/uL; Monocyte% 10.1 % (0-10); NRBC Flagged by Analyzer 0 % (0-5); Neutrophil % 43.4 % (47-70); Platelet Count 273 K/mm3 (150-450); RBC Distribution Width CV 13.2 % (11.6-14.6); RBC Distribution Width SD 44.3 fl (35.1-43.9); Red Blood Count 4.85 M/mm3 (4.2-5.4); White Blood Count 8.3 K/mm3 (4.4-11.0)
[2021-10-04] MEDS: Morphine 4 MG/ML Syringe IV (14:55)
[2021-10-04] MEDS: 0.9% Normal Saline 1,000 ML 125 ML IV (14:55)
[2021-10-04] MEDS: Ondansetron 4 MG/2 ML Vial IV (14:55)
[2021-10-04 15:07] LABS: AST(SGOT) 26 U/L (15-37); Alanine Aminotransfer ALT/SGPT 31 U/L (13-56); Alkaline Phosphatase 83 U/L (45-117); Anion Gap 9 (5-15); BUN 13 mg/dL (7-18); BUN/Creat Ratio 16.5 RATIO (10-20); Calcium,Total 9.5 mg/dL (8.5-10.1); Chloride 105 mmol/L (98-107); Creatinine, Serum 0.79 mg/dL (0.55-1.02); EST Glomerular Filtration Rate 77 mL/min (>60); Est Glom Filt Rate - Afr Amer 94 mL/min (>60); Estimated Creatinine Clearance 41.19 ml/min; Globulin 3.9 g/dL (2.2-4.2); Glucose 102 mg/dL (74-106); Lipase 193 U/L (73-393); Potassium 3.3 mmol/L (3.5-5.1); Protein, Total 7.9 g/dL (6.4-8.2); Sodium Level 140 mmol/L (136-145)
[2021-10-04 15:31] VITALS: BP 125/74; PULSE 65; RESP 15; O2SAT 97
[2021-10-04 15:44] LABS: Bacteria 0 SEEN /hpf (None Seen); Mucous, Urine 0 SEEN /hpf (<or=2+); Red Blood Cells-Urine 0 SEEN /hpf (0-5); Squamous Epithelial Cells - UA 0 SEEN /hpf (5-10)
[2021-10-04 15:57] LABS: Color, Urine Yellow (Yellow); Glucose, Dipstick Normal (Normal); Ketone-Dipstick 5 mg/dl (Negative); Leukocyte Esterase-Dipstick 25 /ul (Negative); Nitrite-Dipstick Negative (Negative); Occult Blood-Urine 10 /ul (Negative); Protein-Dipstick Negative (Negative); Urine Bilirubin Dipstick Negative (Negative); Urine Clarity Clear (Clear); Urine Urobilinogen Normal (Normal)
[2021-10-04 16:04] LABS: White Blood Cells 5-10 SEEN /hpf (0-5)
--- NOTE | 2021-10-04 16:24 | CT_ITS ---
STUDY: CT ABDOMEN AND PELVIS WITHOUT CONTRAST REASON FOR EXAM: Female, 66 years old. Left upper quadrant pain with guarding RADIATION DOSAGE (If Supplied By Facility): CTDIvol = ( ) mGy, DLP = ( ) mGycm TECHNIQUE: Transaxial images were obtained from the dome of the diaphragm to the symphysis pubis without oral contrast, and without intravenous contrast. Sagittal and coronal images were reconstructed. Individualized dose optimization techniques were used for this CT. COMPARISON: None. FINDINGS: The visualized lung bases are unremarkable. Pacer leads seen along the base of the heart Normal liver. Normal gallbladder and extrahepatic biliary system. Normal spleen. Normal pancreas. Normal bilateral adrenal glands. No obstructive uropathy, or suspicious solid renal lesion. There are punctate bilateral nonobstructing renal stones. Normal visualized stomach. Normal small intestine. Scattered colonic diverticulosis, no CT evidence of acute diverticulitis There is non-visualization of the appendix. Normal abdominal aorta. Normal inferior vena cava. Normal retroperitoneum. Normal urinary bladder. There is absence of the uterus consistent with a prior hysterectomy. Normal abdominal wall. Degenerative changes at L5/S1. CT/Abdomen/Pelvis without Cont IMPRESSION: No obstructive uropathy or suspicious solid renal lesion, there are punctate nonobstructing bilateral renal stones No free intraperitoneal fluid, air, or suspicious adenopathy Colonic diverticulosis Degenerative bony changes Electronically Signed: Jose Cruz Yi MD at 17:05 EDT ,
[2021-10-04 17:39] VITALS: BP 102/70; PULSE 65; RESP 19; O2SAT 99
== END 2021-10-04 17:40 | disposition home or self-care (01) ==
PROVIDERS: Emergency Provider Emergency Medicine; PCP Internal Medicine; Visit Provider Emergency Medicine
DX: R10.12 Left upper quadrant pain (principal); I49.5 Sick sinus syndrome; N20.0 Calculus of kidney; K57.30 Diverticulosis of large intestine without perforation or abscess without bleeding; E78.5 Hyperlipidemia, unspecified; I10 Essential (primary) hypertension; F17.210 Nicotine dependence, cigarettes, uncomplicated; Z87.442 Personal history of urinary calculi; K21.9 Gastro-esophageal reflux disease without esophagitis; E03.9 Hypothyroidism, unspecified; Z95.0 Presence of cardiac pacemaker; Z79.899 Other long term (current) drug therapy
CPT/HCPCS: 74176; 80053; 81001; 83605; 83690; 85025; 96361; 96374; 96375; 99285; J7030; A4216; J2405

== ENCOUNTER → 2022-11-22 | Outpatient (CLI) | payer MEDICARE, OTHER, SELFPAY ==
--- NOTE | 2022-11-22 11:49 | BI_ITS ---
MAMMOGRAPHY - BILATERAL SCREENING REASON FOR EXAM: Female, 67 years old. Routine annual screening examination. PERTINENT HISTORY: Non-contributory. TECHNIQUE: Digital bilateral breast vargas (3D mammographic acquisition) in the CC and MLO projections. 2-D mediolateral oblique (MLO) and craniocaudad (CC) views of both breasts were obtained. CAD: Full Field Digital Mammography with Computer Added Detection was performed. COMPARISON: Comparison is made with prior study dated November 19, 2020 and August 02, 2019. FINDINGS: Breast Composition: The breasts are heterogeneously dense, which may obscure small masses. There are no dominant masses or suspicious calcifications. A pacemaker battery pack is seen in the left axillary region. Stable small benign appearing bilateral axillary lymph nodes. No other significant abnormalities are identified. There has been no significant change since the prior study. BI/SCRN MAMM (CAD)W/VARGAS BILAT IMPRESSION: Stable bilateral screening mammogram. Yearly follow-up mammogram recommended. (A) ASSESSMENT CATEGORY: BIRADS Category 2: Benign. A letter regarding these results will be sent to the patient by the facility within 30 days. Approximately 10% of breast cancers are not detected by mammography. A normal mammogram should not delay biopsy of a clinically suspicious abnormality. [id number] Electronically Signed: Israel Mazariegos MD at 13:50 EDT ,
--- NOTE | 2022-11-22 12:09 | BD_ITS ---
STUDY: DUAL ENERGY X-RAY ABSORPTIOMETRY / DXA REASON FOR EXAM: Female, 67 years old. [id number] TECHNIQUE: Bone Mineral Density (BMD) measurements of lumbar spine and bilateral hips were obtained. COMPARISON: Comparison is made with prior study of November 19, 2020. FINDINGS: Lumbar Spine (L1-L4): g/cm2 (0.859) / T-score (-1.7) / Z-score (0.3) Findings are suggestive of osteopenia with a moderate fracture risk. Left Femur Total: g/cm2 (0.773) / T-score (-1.4) / Z-score (0.0) Left Femoral Neck: g/cm2 (0.647) / T-score (-1.8) / Z-score (-0.1) Right Femur Total: g/cm2 (0.779) / T-score (-1.3) / Z-score (0.1) Right Femoral Neck: g/cm2 (0.7-1) / T-score (-1.2) / Z-score (0.6) The T-Scores on the most recent prior examination were: Lumbar Spine (L1-L4): There has been worsening of bone density since the previous examination. Left Femur Total: which represents an improvement of 1.1%. Right Femur Total: which represents a worsening of 2.6%. BD/Dexa Bone Density Study IMPRESSION: The patient is considered osteopenic as outlined below according to World Remy Organization (WHO) criteria with a moderate fracture risk. There has been worsening of bone density since the previous examination. Reference Information: The T-score is the number of standard deviations above or below the standard which is normal for young adults at their peak bone mineral density. The World Health Organization (WHO) interprets the T-scores as follows: Above -1 Normal bone density Between -1 and -2.5 Osteopenia Equal to / or below -2.5 Osteoporosis As a practical clinical guideline, osteopenia may be graded as follows: Mild -1 through -1.5 Moderate -1.6 through -2.0 Severe -2.1 through -2.4 The Z-score is the number of standard deviations above or below age-matched controls. A Z-score of less than -1.5 would be considered abnormal. References: 1. NIH Osteoporosis and Related Bone Diseases www osteo.org 2. International Society for Clinical Densitometry www iscd.org 3. National Osteoporosis Foundation www nof.org Electronically Signed: Israel Mazariegos MD at 13:48 EDT ,
== END | disposition home or self-care (01) ==
LOC: OPBD 11:46
PROVIDERS: PCP Internal Medicine; Referring Provider Internal Medicine; Visit Provider Internal Medicine
DX: Z12.31 Encounter for screening mammogram for malignant neoplasm of breast (principal); Z78.0 Asymptomatic menopausal state
CPT/HCPCS: 77063; 77067; 77080

== ENCOUNTER → 2023-04-06 | Outpatient (CLI) | payer MEDICARE, OTHER, SELFPAY ==
--- NOTE | 2023-04-06 14:39 | CT_ITS ---
EXAM: CT CHEST, LUNG CANCER SCREENING WITHOUT INTRAVENOUS CONTRAST CLINICAL INDICATION: current smoker TECHNIQUE: Helically acquired images were obtained of the chest without intravenous contrast using low dose (LDCT) lung cancer screening protocol. This CT exam was performed using one or more of the following dose reduction techniques: automated exposure control, adjustment of the mA and/or kV according to patient size, and/or use of iterative reconstruction technique. COMPARISON: 03/03/2016 FINDINGS: LUNGS AND PLEURAL SPACES: There is scarring within the lower lobes. No mass. No pleural effusion or thickening. No pneumothorax. HEART: Unremarkable. Heart size is normal. No pericardial effusion. No significant coronary artery calcifications. MEDIASTINUM: Unremarkable. No mediastinal or hilar adenopathy. Esophagus is unremarkable. No hiatal hernia. THYROID: Unremarkable. No thyroid lesions. BONES/JOINTS: Unremarkable. No suspicious lytic or blastic abnormality. VASCULATURE: Unremarkable. Thoracic aorta is non-dilated. LYMPH NODES: Unremarkable. No enlarged lymph nodes. CT/Low Dose CT Lung Screening IMPRESSION: No acute pulmonary abnormality. Lung-RADS score: 1 - Recommend continued annual screening with a low-dose CT (LDCT) in 12 months. Electronically Signed: Isaias Christianson MD at 22:36 EDT ,
== END | disposition home or self-care (01) ==
LOC: CT 14:36
PROVIDERS: PCP Internal Medicine; Referring Provider Internal Medicine; Visit Provider Internal Medicine
DX: F17.210 Nicotine dependence, cigarettes, uncomplicated (principal)
CPT/HCPCS: 71271

== ENCOUNTER → 2024-06-19 | Outpatient (CLI) | payer MEDICARE, OTHER, SELFPAY ==
--- NOTE | 2024-06-19 12:54 | BI_ITS ---
MAMMOGRAPHY - BILATERAL SCREENING REASON FOR EXAM: Female, 69 years old. Routine annual screening examination. PERTINENT HISTORY: Non-contributory. Remote right excisional breast biopsy. TECHNIQUE: Digital bilateral breast vargas (3D mammographic acquisition) in the CC and MLO projections. 2-D mediolateral oblique (MLO) and craniocaudad (CC) views of both breasts were obtained. CAD: Full Field Digital Mammography with Computer Added Detection was performed. COMPARISON: Comparison is made with prior study dated November 22, 2022 and November 19, 2020. FINDINGS: Breast Composition: The breasts are heterogeneously dense, which may obscure small masses. There are no dominant masses or suspicious calcifications. A pacemaker battery pack is seen in the left axilla. Stable small bilateral axillary lymph nodes. No other significant abnormalities are identified. There has been no significant change since the prior study. BI/SCRN MAMM (CAD)W/VARGAS BILAT IMPRESSION: Stable bilateral screening mammogram. Yearly follow-up mammogram recommended. (A) ASSESSMENT CATEGORY: BIRADS Category 2: Benign. A letter regarding these results will be sent to the patient by the facility within 30 days. Approximately 10% of breast cancers are not detected by mammography. A normal mammogram should not delay biopsy of a clinically suspicious abnormality. [id number] Electronically Signed: Israel Mazariegos MD at 13:54 EST ,
== END | disposition home or self-care (01) ==
LOC: OPBI 12:54
PROVIDERS: PCP Internal Medicine; Referring Provider Internal Medicine; Visit Provider Internal Medicine
DX: Z12.31 Encounter for screening mammogram for malignant neoplasm of breast (principal)
CPT/HCPCS: 77063; 77067

== ENCOUNTER 2024-07-10 10:12 | Emergency (ER) | payer MEDICARE, OTHER, SELFPAY ==
[2024-07-10 10:13] VITALS: BP 209/107; PULSE 65; RESP 18; TEMP 36.9; O2SAT 97
--- NOTE | 2024-07-10 10:18 | EKG12_ITS ---
Test Reason : STROKEALERT Blood Pressure : */* mmHG Vent. Rate : 68 BPM Atrial Rate : 68 BPM P-R Int : 174 ms QRS Dur : 84 ms QT Int : 426 ms P-R-T Axes : 72 38 46 degrees QTcB Int : 452 ms Normal sinus rhythm Nonspecific ST abnormality Abnormal ECG Confirmed by JASEN MORGAN MD ([id number]), television news video editor TRINITY JEFFERSON ([id number]) on 07/12/2024 6:24:40 AM Referred By: Confirmed By: JASEN MORGAN MD
--- NOTE | 2024-07-10 10:18 | CT_ITS ---
INDICATION: Neuro deficit, acute, seizure EXAMINATION: CTA HEAD - CTA Head and Neck W/ Contrast Injection (and W/O Contrast Images if performed) TECHNIQUE: [place] [facility] [place]/head CT angiogram protocol was performed following IV contrast. Routine carotid CT angiogram protocol was performed without and with IV contrast. NASCET criteria using the distal ICAs for comparison were used for evaluation of stenoses. 3D reconstructions were reviewed of the CT angiogram head and neck. A radiation dose optimization technique was used for this scan. IV Contrast dosage and agent: 1 cc [id number] COMPARISON: None. FINDINGS: A 0 x 2.4 cm posterior fossa mass abuts the lateral aspect of the left cerebellum and causes compression of the fourth ventricle. No obstructive hydrocephalus. No acute ischemia. Areas of diminished white matter density noted within both cerebral hemispheres suggestive of chronic microvascular change. Prominence of the cortical sulci and ventricles commensurate with the patient''s age. --Anterior cerebral circulation: ACAs: No significant stenosis at the visualized segments. ACOM: Not present. MCAs: No significant stenosis at the visualized segments. --Posterior cerebral circulation: PCOMs: Present bilaterally. 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 BASILAR ARTERY: Congenitally small basilar artery. --Carotid and vertebral circulation: AORTIC ARCH AND BRANCHES: Dominant left vertebral artery arises from the aortic arch. Proximal brachiocephalic vessels are otherwise unremarkable. RIGHT CCA: No occlusion, significant stenosis or dissection. RIGHT ICA: No occlusion, significant stenosis or dissection. LEFT CCA: No occlusion, significant stenosis or dissection. LEFT ICA: Mild calcific plaquing at the left carotid bulb. No occlusion, significant stenosis or dissection. RIGHT VERTEBRAL ARTERY: Congenitally small in size. No occlusion, significant stenosis or dissection. Right vertebral artery terminates in small inferior cerebellar branches. LEFT VERTEBRAL ARTERY: No occlusion, significant stenosis or dissection. NECK SOFT TISSUES: Unremarkable. LUNG APICES: Clear. BONES: Unremarkable. CT/CTA Head AND Neck W/ Contrast IMPRESSION: 4.0 x 2.4 cm left posterior fossa mass which may be extra-axial in location raising the possibility of meningioma. Follow-up MRI of the brain with and without contrast recommended for further evaluation. No evidence of arterial stenosis, occlusion, dissection or intracranial aneurysm. Electronically Signed: Jus Thorpe MD at 11:59 EST ,
--- NOTE | 2024-07-10 10:18 | RAD_ITS ---
EXAM: XR CHEST, 1 VIEW CLINICAL INDICATION: Neuro deficit, acute, stroke suspected TECHNIQUE: Frontal view of the chest. COMPARISON: XR Chest dated 11/11/2019 FINDINGS: LUNGS AND PLEURAL SPACES: Normal. No consolidation or edema. No pneumothorax. No effusion. HEART: Atrial and ventricular wires remain in place. MEDIASTINUM: No mediastinal or hilar mass. BONES/JOINTS: No acute abnormality. RAD/Chest 1 View IMPRESSION: No acute cardiopulmonary abnormality. No interval change Electronically Signed: Jus Thorpe MD at 11:47 EST ,
[2024-07-10 10:26] VITALS: BP 199/101; PULSE 71; RESP 18; TEMP 36.9; O2SAT 97; BMI 26.2
[2024-07-10] MEDS: LORazepam 2 MG/ML Syringe 1 MG IV (10:28)
--- NOTE | 2024-07-10 10:29 | ED.RN ---
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 pt is alert, following commands but not able to speak.
--- NOTE | 2024-07-10 10:33 | ED.RN ---
stated okay to cancel [facility] assessments.
[2024-07-10 10:37] VITALS: BP 173/99; PULSE 69; RESP 18; O2SAT 95
[2024-07-10 10:40] LABS: Absolute Lymphocyte Count 3.34 X10^3/uL (0.83-4.51); Absolute Neutrophil Count 3.3 X10^3/uL (2.0-7.7); Basophil# 0.06 X10^3/uL; Basophil% 0.7 % (0-1); Eosinophil# 0.43 X10^3/uL; Eosinophils% 5.4 % (0-5); Hematocrit 39.8 % (37-47); Hemoglobin 13.2 g/dL (12.0-15.0); Lymphocyte # 3.34 X10^3/ul (0.83-4.51); Lymphocyte % 41.6 % (19-41); Mean Corp Hgb Conc 33.2 g/dL (32-36); Mean Corpuscular Volume 93.4 fL (81-99); Mean Platelet Vol. 10.6 fl (6.2-12.0); Monocyte% 11.2 % (0-10); NRBC Flagged by Analyzer 0 % (0-5); Neutrophil # 3.27 X10^3/uL (2.7-7.7); Neutrophil % 40.7 % (47-70); Platelet Count 232 K/mm3 (150-450); RBC Distribution Width CV 13.8 % (11.6-14.6); RBC Distribution Width SD 46.9 fl (35.1-43.9); Red Blood Count 4.26 M/mm3 (4.2-5.4)
--- NOTE | 2024-07-10 10:41 | ED.RN ---
patient able to use phone to pull up home medications. when family asked questions to pt directly, she is able to answer them with words.
[2024-07-10 10:49] LABS: Partial Thromboplast Time 24.2 Seconds (24.1-36.2); Prothrombin Time (Protime)PT. 13.6 SECONDS (11.7-14.9)
--- NOTE | 2024-07-10 10:51 | EDS_ITS ---
HPI History of Present Illness Chief Complaint: Seizure Informant: patient, spouse/S.O., family and EMS Narrative Narrative: 69-year-old female brought to EMS prehospital stroke alert. The arrives he tells me that earlier this year they were in the [facility] and she reportedly had a seizure was seen at a hospital and discharged home on a seizure medication. She had been doing well for several months. He states that recently she has been able to feel a seizure coming on. He states that she has difficulty speaking and her arms will move. He states that they is generally short-lived. She seen her doctor for this and states that she is scheduled for an MRI upcoming. This morning they were staying at her sister's house and she had sat down for breakfast ate a few bites when she began to stare forward. stated that she had mentioned that her left eyebrow began to twitch. He states that the arms began to shake mildly and that she was unable to speak. On previous times she has been able to speak occasionally through the episodes. He states that she was assisted to the couch. She continued to stare off and it lasted significantly longer and so EMS was called. EMS noted an inability to speak and right-sided weakness. [facility] Medical History History of complete heart block Diabetes mellitus Essential hypertension History of kidney stones Hypothyroidism History of seizures GERD (gastroesophageal reflux disease) Hyperlipidemia Supraventricular tachycardia Syncope and collapse Sick sinus syndrome Presence of cardiac pacemaker (11/29/19) Home Medications ?Medication ?Instructions ?Recorded ?Last Taken ?Type losartan 50 mg tablet 50 mg PO BID 10/04/17 Unknown History amlodipine 10 mg tablet (Norvasc) 10 mg PO QDAY #90 tabs 04/23/18 Unknown Rx paroxetine HCl 25 mg 25 mg PO DAILY 03/23/22 Unknown History tablet,extended release 24 hr hydrochlorothiazide 12.5 mg tablet 12.5 mg PO DAILY #90 tabs 03/03/23 Unknown Rx atorvastatin 20 mg tablet See Rx Instructions .Route 12/20/23 Unknown Rx .COMPLEX #90 tabs metformin 500 mg tablet 500 mg PO BID 01/29/24 Unknown History metoprolol succinate 100 mg 100 mg PO DAILY #90 tabs 04/01/24 Unknown Rx tablet,extended release 24 hr (Toprol XL) levothyroxine 100 mcg tablet 100 mcg PO DAILY 07/10/24 Unknown History liothyronine 5 mcg tablet 5 mcg PO DAILY 07/10/24 Unknown History meloxicam 15 mg tablet 15 mg PO DAILY 07/10/24 Unknown History Allergy/AdvReac Type Severity Reaction Status Date / Time sertraline (From Zoloft) Allergy Mild seizure Verified 07/10/24 10:34 enoxaparin sodium (From Allergy Anaphylaxis Verified 07/10/24 10:34 Lovenox) Sulfa (Sulfonamide Allergy Rash Verified 07/10/24 10:34 Antibiotics) Family History Grandmother CVA (cerebral vascular accident) Grandfather CHF (congestive heart failure) Father CVA (cerebral vascular accident) CHF (congestive heart failure) Brother CAD (coronary artery disease) Myocardial infarction Sister Hypertension CHF (congestive heart failure) Sister Mitral valve prolapse Surgical History History of radiofrequency ablation procedure for cardiac arrhythmia History of cardiac radiofrequency ablation (RFA) History of arthroscopic knee surgery (~02/2021) History of tubal ligation History of tonsillectomy History of foot surgery History of hernia repair Hx of appendectomy Social History household members: none Smoking Status: Current every day smoker tobacco type: cigarettes alcohol intake: current alcohol intake frequency: a few times a month Alcohol type: wine substance use type: does not use caffeine: Yes Type: coffee Number of servings: 2 ROS ROS ED Constitutional Constitutional ED: Denies chills, fever(s) or weight loss Eyes Eyes: Denies change in vision or diplopia ENT ENT ED: Denies ear pain, rhinorrhea or sore throat Cardiovascular Cardiovascular: Denies chest pain, orthopnea, palpitations or racing heartbeat Respiratory/Chest Respiratory/Chest: Denies cough, dyspnea or orthopnea Gastrointestinal Gastrointestinal: Denies abdominal pain, diarrhea, nausea or vomiting Genitourinary Genitourinary ED: Denies dysuria, hematuria or urinary frequency Musculoskeletal Musculoskeletal: Denies arthralgias or myalgias Integumentary Denies abscess or rash Neurologic Neurologic: Reports weakness and other Details: Aphasia possible seizure activity ; Denies headache(s) Psychiatric Psychiatric: Denies anxiety, depression, suicidal ideation or suicidal thoughts Endocrine Endocrinology: Denies polydipsia, polyphagia or polyuria Allergic/Immunologic Allergic/Immunologic ED: Denies mouth swelling, tongue swelling or urticaria EXAM Physical Exam Const Vital Signs: 07/10/24 10:13 07/10/24 10:26 07/10/24 10:37 Temperature 98.4 F 98.4 F Temperature Source Temporal Oral Pulse Rate 65 71 69 Respiratory Rate 18 18 18 Blood Pressure 209/107 H 199/101 H 173/99 H Blood Pressure Mean 141 133 123 Pulse Ox 97 97 95 Oxygen Delivery Method Room Air Room Air Room Air 07/10/24 12:53 07/10/24 14:00 07/10/24 15:00 Temperature 98.6 F Temperature Source Pulse Rate 60 60 60 Respiratory Rate 20 H 15 17 Blood Pressure 161/95 H 149/111 H 143/92 H Blood Pressure Mean 117 123 109 Pulse Ox 95 94 94 Oxygen Delivery Method Room Air Room Air Positive well nourished and well developed General Appearance ED: well developed and NAD HEENT Reports normocephalic, head/scalp atraumatic and moist mucous membranes HEENT Narrative: No tongue deviation Eyes PERRL and EOMs intact bilaterally Neck no lymphadenopathy, supple and no JVD Resp normal respiratory effort and clear to auscultation bilaterally Cardio regular rate, regular rhythm and no murmurs GI normal to inspection, nondistended, normoactive bowel sounds and non-tender Palpation: soft Back/Spine no CVA tenderness and normal ROM Extremity normal to inspection General Extremety ED: Negative for edema General Extremity: Negative for edema Neuro CN's II-XII intact bilaterally Neuro Narrative: Patient is alert. She follows commands. Right and left side are equally weak. She is able to hold her arms up off the bed. She is able to move her legs equally flexing at the hips and flexing extending at the knee. She is able with her toes but she is not to lift them up off the bed. She nods her head yes when I ask her if she can feel me touching her. She is able to follow my finger with her eyes. Sensorium / Orientation: alert Motor Exam: general weakness Psych Mood & Affect: tearful; Negative for depressed Skin no rashes or lesions noted and no wounds MDM MDM MDM Narrative Medical decision making narrative: Differential diagnosis includes but not limited to the ischemic stroke intracranial hemorrhage malignancy cerebral edema seizure Hermilo's paralysis Initially a prehospital stroke alert was called. However after my initial stroke alert but did send her to CT for CT of the brain and CTA head and neck. Nursing reports that she began to shake her arms while down there. A milligram of Ativan was given. She was brought back to the room where I was speaking with her family. She is now holding her phone attempting to log into the device to see if she can get her medication list. CT of the brain and CTA of the head and neck demonstrate a 4 x 2.4 cm left posterior fossa mass possible extra-axial/meningioma. Patient is doing significantly better and is now speaking. Laboratory workup is essentially negative. I did speak with her primary care doctor on-call who notes that the patient according to their records is not on any antiepileptics. She states that she is scheduled for an MRI in about a week and a half and from there was supposed to follow-up with a neurologist whom she has not seen yet. I spoke with our hospitalist here who recommends possible transfer to tertiary care for EEG and further evaluation. I spoke with the family. The patient lives in [place] so [facility] would be closest. I reached out to [facility] and we are currently awaiting acceptance. Patient was accepted to [facility]. Apparently the ambulance transfer company is requiring upfront payment and the family does not have this. They would like to transfer her by private vehicle. While not ideal I do not have another way of transporting her at this time and they understand the risk of recurrent seizure stroke etc. History & Record Review Discussion w/independent historian: EMS personnel, Patient and Family Lab Data Attestation: I reviewed the patient's lab results. Labs: Laboratory Results - last 24 hr 07/10/24 10:30 WBC 8.0 RBC 4.26 Hgb 13.2 Hct 39.8 MCV 93.4 MCH 31.0 MCHC 33.2 RDW Std Deviation 46.9 H RDW Coeff of Nora 13.8 Plt Count 232 MPV 10.6 Immature Gran % (Auto) 0.400 Neut % (Auto) 40.7 L Lymph % (Auto) 41.6 H Cocke % (Auto) 11.2 H Eos % (Auto) 5.4 H Baso % (Auto) 0.7 Absolute Neuts (auto) 3.3 Absolute Lymphs (auto) 3.34 Nucleated RBC % 0 PT 13.6 INR 1.0 APTT 24.2 Sodium 138 Potassium 4.1 Chloride 105 Carbon Dioxide 27.0 Anion Gap 6 BUN 18 Creatinine 0.87 Estim Creat Clear Calc 51.18 Est GFR (MDRD) Af Amer 82 Est GFR (MDRD) Non-Af 68 BUN/Creatinine Ratio 20.6 H Glucose 112 H Calcium 8.4 L Total Bilirubin 0.40 Direct Bilirubin 0.10 AST 22 ALT 25 Alkaline Phosphatase 65 Troponin I High Sens 7 Total Protein 6.5 Albumin 3.2 Globulin 3.3 Radiography Diagnostic Testing: Clinical Impression(s) from Imaging Studies Chest X-Ray 07/10/24 10:18 IMPRESSION: No acute cardiopulmonary abnormality. No interval change Electronically Signed: Jus Thorpe MD at 11:47 EST , Head/Neck CTA 07/10/24 10:18 IMPRESSION: 4.0 x 2.4 cm left posterior fossa mass which may be extra-axial in location raising the possibility of meningioma. Follow-up MRI of the brain with and without contrast recommended for further evaluation. No evidence of arterial stenosis, occlusion, dissection or intracranial aneurysm. Electronically Signed: Jus Thorpe MD at 11:59 EST , Management Discussion w/another healthcare provider: Hospitalist (Dr Mendez) and Technical Supervisor ([facility] Transfer) Discharge Plan Triage Chief Complaint: Seizure ED Provider: Hilario Alvarez Dx/Rx/DC Orders Clinical Impression: Seizure-like activity, Brain mass, Aphasia Prescriptions: No Action paroxetine HCl 25 mg tablet extended release 24 hr 25 mg PO DAILY metformin 500 mg tablet 500 mg PO BID levothyroxine 100 mcg tablet 100 mcg PO DAILY Rx Instructions: 1/2 tablet on sundays meloxicam 15 mg tablet 15 mg PO DAILY liothyronine 5 mcg tablet 5 mcg PO DAILY losartan 50 mg tablet 50 mg PO BID amlodipine [Norvasc] 10 mg tablet 10 mg PO QDAY Qty: 90 3RF hydrochlorothiazide 12.5 mg tablet 12.5 mg PO DAILY Qty: 90 3RF atorvastatin 20 mg tablet See Rx Instructions .ROUTE .COMPLEX Qty: 90 3RF Dose Instruction: TAKE 1 TABLET AT BEDTIME Rx Instructions: TAKE 1 TABLET AT BEDTIME metoprolol succinate [Toprol XL] 100 mg tablet extended release 24 hr 100 mg PO DAILY Qty: 90 3RF Primary Care Provider: Roopa Gongora Referrals: Roopa Gongora DO [Primary Care Provider] - Print Language: Samoan Disposition Disposition: Acute Care Hospital Discharge Location: [facility]
[2024-07-10 11:09] LABS: AST(SGOT) 22 U/L (15-37); Alanine Aminotransfer ALT/SGPT 25 U/L (13-56); Albumin, Serum 3.2 g/dL (3.2-5.0); Alkaline Phosphatase 65 U/L (45-117); Anion Gap 6 (5-15); BUN 18 mg/dL (7-18); BUN/Creat Ratio 20.6 RATIO (10-20); Calcium,Total 8.4 mg/dL (8.5-10.1); Chloride 105 mmol/L (98-107); Creatinine, Serum 0.87 mg/dL (0.55-1.02); EST Glomerular Filtration Rate 68 mL/min (>60); Est Glom Filt Rate - Afr Amer 82 mL/min (>60); Estimated Creatinine Clearance 51.18 ml/min; Globulin 3.3 g/dL (2.2-4.2); Glucose 112 mg/dL (74-106); Potassium 4.1 mmol/L (3.5-5.1); Protein, Total 6.5 g/dL (6.4-8.2); Sodium Level 138 mmol/L (136-145); Troponin-I HS 7 pg/mL (3.0-54.0)
[2024-07-10 12:53] VITALS: BP 161/95; PULSE 60; RESP 20; TEMP 37; O2SAT 95
[2024-07-10 14:00] VITALS: BP 149/111; PULSE 60; RESP 15; O2SAT 94
[2024-07-10] MEDS: levETIRAcetam IV 1,500 MG in 0.9% Normal Saline (100mL Bag) 100 ML 460 MG IV (14:40)
[2024-07-10 15:00] VITALS: BP 143/92; PULSE 60; RESP 17; O2SAT 94
== END 2024-07-10 16:50 | disposition short-term general hospital (02) ==
PROVIDERS: Emergency Provider Emergency Medicine; PCP Internal Medicine; Visit Provider Emergency Medicine
DX: R56.9 Unspecified convulsions (principal); E11.9 Type 2 diabetes mellitus without complications; G93.9 Disorder of brain, unspecified; E78.5 Hyperlipidemia, unspecified; I10 Essential (primary) hypertension; F17.210 Nicotine dependence, cigarettes, uncomplicated; E03.9 Hypothyroidism, unspecified; Z95.0 Presence of cardiac pacemaker; Z98.51 Tubal ligation status; R47.01 Aphasia; R53.1 Weakness; Z79.899 Other long term (current) drug therapy; Z87.442 Personal history of urinary calculi; R47.9 Unspecified speech disturbances; R94.31 Abnormal electrocardiogram [ECG] [EKG]
CPT/HCPCS: 70496; 70498; 71045; 80048; 80076; 84484; 85025; 85610; 85730; 93005; 96365; 96375; 99285; Q9967; A4216

== ENCOUNTER 2024-07-18 11:30 | Inpatient (IN) | payer MEDICARE, OTHER, SELFPAY ==
[2024-07-18 11:46] VITALS: BP 123/83; PULSE 60; RESP 16; TEMP 36; O2SAT 96; BMI 22.8
[2024-07-18 12:04] VITALS: BMI 22.8
[2024-07-18] MEDS: oxyCODONE 5 MG Tablet PO ×2 (13:15→17:57)
--- NOTE | 2024-07-18 13:30 | EX.PCM.HP.RE ---
HPI - General General Date of Admission: 07/18/24 Date of Service: 07/18/24 Chief Complaint: Debility secondary to craniotomy for excision of meningioma HPI Narrative KHARI DYSON, is a 69-year-old with past medical history as listed below who presented F who presented to the emergency department at [facility] on 07/10/2024 after a seizure at home. CAT scan showed a 4 cm x 2.4 cm left posterior fossa mass. She was transferred to [facility] for further evaluation. She was started on Keppra at admission to [facility]. On 07/14/2024 she underwent a craniotomy for meningioma resection. Postoperatively she was continued on Keppra and was started on Decadron. She was placed on SCDs for DVT prophylaxis. She had a Sanchez catheter while at [facility] and it was inserted on 07/15/2024 and removed on 07/16/2024. Postoperatively she was seen by PT/OT/ST and acute inpatient rehab was recommended at discharge. She was transferred to the acute inpatient rehab unit at [facility] on 07/18/2024 for 3 hours of therapy daily to restore function/independence at or near her level prior to the recent craniotomy. Vital signs at presentation to rehab are blood pressure 123/83, pulse 60, respiratory rate 16, temp 96.8 and she is 96% saturated on room air. All documentation sent to us from [facility] was personally reviewed along with the EMR from [facility]. [facility] Medical History (Updated 07/18/24 @ 14:[address] Khari Rivera, DO) Anxiety and depression Meningioma, cerebral History of complete heart block Diabetes mellitus Essential hypertension History of kidney stones Hypothyroidism History of seizures GERD (gastroesophageal reflux disease) Hyperlipidemia Supraventricular tachycardia Syncope and collapse Sick sinus syndrome Presence of cardiac pacemaker (11/29/19) Home Medications ?Medication ?Instructions ?Recorded ?Last Taken ?Type losartan 50 mg tablet 50 mg PO DAILY BP 10/04/17 07/18/24 History paroxetine HCl 25 mg 25 mg PO DAILY Mood 03/23/22 Unknown History tablet,extended release 24 hr hydrochlorothiazide 12.5 mg tablet 12.5 mg PO DAILY BP #90 tabs 03/03/23 07/18/24 Rx metformin 500 mg tablet 500 mg PO DAILY Blood sugar 01/29/24 Unknown History metoprolol succinate 100 mg 100 mg PO DAILY BP #90 tabs 04/01/24 07/18/24 Rx tablet,extended release 24 hr (Toprol XL) levothyroxine 100 mcg tablet 100 mcg PO DAILY thyroid 07/10/24 07/18/24 History liothyronine 5 mcg tablet 5 mcg PO DAILY 07/10/24 Unknown History meloxicam 15 mg tablet 15 mg PO DAILY 07/10/24 Unknown History acetaminophen 325 mg capsule 650 mg PO Q4H PRN pain 07/18/24 07/18/24 History atorvastatin 20 mg tablet 20 mg PO DAILY cholestrol 07/18/24 Unknown History dexamethasone 1 mg tablet 1 mg PO Q6H Brain mass 07/18/24 07/18/24 History famotidine 20 mg tablet 20 mg PO QHS GERD 07/18/24 07/17/24 History oxycodone 5 mg capsule 5 mg PO Q4H PRN pain 07/18/24 07/18/24 History Allergy/AdvReac Type Severity Reaction Status Date / Time sertraline (From Zoloft) Allergy Mild seizure Verified 07/10/24 10:34 enoxaparin sodium (From Allergy Anaphylaxis Verified 07/10/24 10:34 Lovenox) Sulfa (Sulfonamide Allergy Rash Verified 07/10/24 10:34 Antibiotics) Family History Grandmother CVA (cerebral vascular accident) Grandfather CHF (congestive heart failure) Father CVA (cerebral vascular accident) CHF (congestive heart failure) Brother CAD (coronary artery disease) Myocardial infarction Sister Hypertension CHF (congestive heart failure) Sister Mitral valve prolapse Surgical History (Updated 07/18/24 @ 13:[address] Khari iRvera DO) Hx of craniotomy History of hysterectomy History of radiofrequency ablation procedure for cardiac arrhythmia History of cardiac radiofrequency ablation (RFA) History of arthroscopic knee surgery (~02/2021) History of tubal ligation History of tonsillectomy History of foot surgery History of hernia repair Hx of appendectomy Social History (Updated 07/18/24 @ 13:[address] Khari Rivera DO) household members: significant other and none housing: other number of children: 2 pets and animals: No leisure activities: fishing do you think of yourself as: straight/heterosexual Smoking Status: Former smoker quit date: 07/10/24 Tobacco: How many years used: 11 alcohol intake: current alcohol intake frequency: a few times a month Alcohol type: wine substance use type: does not use caffeine: Yes Type: coffee Number of servings: 2 ROS Review of Systems ROS Unobtainable: Denies due to encephalopathy, due to endotracheal tube, due to mental condition or due to mental status Constitutional Constitutional: Reports weakness; Denies anorexia, change in weight, chills, fatigue, fever(s) or night sweats Eyes Eyes: Reports blurry vision and change in vision left (Vision is blurry in the left eye); Denies eye pain or loss of vision ENT HEENT: Reports headache(s); Denies abnormal hearing, dysphagia, hearing loss, nasal congestion or sore throat Cardiovascular Cardiovascular: Denies chest pain, dyspnea on exertion, edema, lightheadedness, orthopnea, palpitations, paroxysmal nocturnal dyspnea or syncope Respiratory/Chest Respiratory/Chest: Denies cough, dyspnea, shortness of breath at rest, shortness of breath with exertion or wheezing Gastrointestinal Gastrointestinal: Reports constipation; Denies abdominal pain, diarrhea, dyspepsia, hematemesis, hematochezia, nausea or vomiting Genitourinary Genitourinary: Denies dysuria, hematuria, nocturia, urinary frequency, urinary hesitancy, urinary incontinence or urinary urgency Musculoskeletal Musculoskeletal: Denies back pain, joint pain, joint swelling or neck pain Neurologic Neurologic: Reports disequilibrium and other Details: She has noticed some change in her thought processes since the craniotomy. Some trouble with word finding. ; Denies confusion, dizziness, focal weakness, headache(s), paresthesias, seizures or tremor(s) Psychiatric Psychiatric: Reports anxiety, depression and other Details: Routinely takes Paxil CR as an outpatient. ; Denies homicidal ideation or suicidal ideation Endocrine Endocrinology: Denies change in body appearance, polydipsia or polyuria Hematologic/Lymphatic Hematologic/Lymphatic: Denies easy bleeding, easy bruising or lymphadenopathy Allergic/Immunologic Allergic/Immunologic: Denies rhinitis, eczemia or asthma Vital Signs Vital Signs Vital Signs: 07/18/24 11:46 Temperature 96.8 F L Temperature Source Temporal Pulse Rate 60 Respiratory Rate 16 Blood Pressure 123/83 H Blood Pressure Mean 96 Blood Pressure Source Monitor Blood Pressure Position Semi-Fowlers Blood Pressure Location Right Arm Pulse Ox 96 Oxygen Delivery Method Room Air Weight Weight: 116 lb 8 oz Body Mass Index (BMI) 22.8 Indicators for Scoring Admitted with or Primary Diagnosis of CVA/Stroke: No Hx of CVA/Stroke: No NIHSS NIHSS 1a. Level of Consciousness: Alert; keenly responsive 1b. LOC Questions: Answers BOTH questions correctly. 1c. LOC Commands: Performs both tasks correctly. 2. Best Gaze: Normal 3. Visual: No visual loss 4. Facial Palsy: Normal symmetrical movements 5a. Left Arm: No drift; arm holds 90 (or 45) degrees for full 10 seconds 5b. Right Arm: No drift; arm holds 90 (or 45) degrees for full 10 seconds 6a. Left Leg: No drift; leg holds 30-degree position for full 5 seconds 6b. Right Leg: No drift; leg holds 30-degree position for full 5 seconds 7. Limb Ataxia: Absent 8. Sensory: Normal; no sensory loss 9. Best Language: No aphasia; normal 10. Dysarthria: Normal 11. Extinction and Inattention: No abnormality Total: 0 Stroke Questions Stroke Team Activated: No Physical Exam Const alert, oriented x3, no apparent distress, healthy appearing and well nourished General Appearance: cooperative and well kempt HEENT normocephalic, hearing grossly normal bilaterally and external nose normal HEENT Narrative: Mucous membranes are dry Eyes PERRL, EOMs intact bilaterally, conjunctivae normal and no scleral icterus Eyes Narrative: No discharge from the eyes. No visual field cuts. No visual extinction. No nystagmus. Neck supple, no JVD and no carotid bruits General: trachea midline Chest Chest: symmetrical chest wall rise Resp normal respiratory effort, normal air movement and clear to auscultation bilaterally Effort and Inspection: able to speak in complete sentences Cardio regular rate, regular rhythm, S1 normal heart sound, S2 normal heart sound, no murmurs, no rub and no gallops Cardio Narrative: No ectopy GI normal to inspection, nondistended, normoactive bowel sounds, soft to palpation and non-tender GI Narrative: No guarding with palpation no CVA tenderness Extremity normal capillary refill, no calf tenderness and no pedal edema Extremity Narrative: No clubbing General Extremity: Negative for cyanosis Skin Skin Narrative: No rashes Wound Narrative: Craniotomy incision is located over the left occiput. The incision is intact and held together with lópez. There is no dehiscence and there is no purulent discharge. There is no chris-incisional erythema and no significant swelling around the incision. Neuro oriented x3, CN's II-XII intact bilaterally, moves all extremities, no focal motor deficits and no sensory deficits noted Neuro Narrative: No ataxia, no extinction. No dysarthria and no aphasia. Some mild cognitive dysfunction. Occasional difficulty with word finding and recognizes that her thinking is slower than it had been. Psych cooperative, affect normal, speech normal, denies hallucinations, denies homicidal ideation and denies suicidal ideation Psych Narrative: Tells me she is having trouble staying asleep at night. She sleeps for about an hour and then awakens. This may be secondary to Decadron that she has been getting every 6 hours. Attitude: calm and engaged Activity / Motor Behavior: appropriate eye contact Speech: normal speech Mood & Affect: euthymic mood Assessment & Plan Assessment/Plan (1) Debility: (2) Meningioma, cerebral: (3) Hx of craniotomy: (4) Cognitive dysfunction: (5) Generalized weakness: (6) Disequilibrium: (7) Diabetes mellitus: QUALIFIERS: Diabetes mellitus complication status: without complication Diabetes mellitus regional intermodal truck driver insulin use: without correction use Diabetes mellitus type: type 2 Qualified Code(s): E11.9 - Type 2 diabetes mellitus without complications (8) Essential hypertension: (9) Hyperlipidemia: QUALIFIERS: Hyperlipidemia type: unspecified Qualified Code(s): E78.5 - Hyperlipidemia, unspecified (10) History of complete heart block: (11) Anxiety and depression: (12) Hypothyroidism: (13) Insomnia: QUALIFIERS: Insomnia type: drug-induced Qualified Code(s): F19.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 Carbohydrate controlled, heart healthy diet Ambien 5 mg p.o. nightly for insomnia......... suspect that this will improve once she is off Decadron for a couple of days Must be able to ascend/descend 14 steps to enter her house before she can safely go home. There is 1 HR. She tells me that she has had no vertigo since the surgery. Still feeling some dysequilibrium. Has a grab bar in the shower But, it is the suction cup kind.....we talked about having one installed to the wall and also discussed possibly getting a second HR for the stairs to enter the house. Charges/Coding Visit Charges Inpatient E&M: 06883 Init Hosp L2
--- NOTE | 2024-07-18 14:30 | REHABEVAL_ITS ---
Admission Information Primary Diagnosis:: Debility secondary to meningioma with recent craniotomy to excise. Status Changes from Prescreening?: No changes Identified Actual Problem List:: Skin Intergrity, Pain, ALteration in Cmfrt, Cognitve Impr/Memory Loss, Depression, Bowel, Constipation, Alteration in Sleep, Mobility Impaired, Self Care Deficit, Fluid Change-Dehydration and Alteration-Leisure Activ. Potential Problem List:: DVT, Bleeding, Infection, UTI, Aspiration, Falls, Skin Integrity and Depression Risk of Complications DVT: JULIA Hose and Sequential Compression Device Bleeding: Monitor Lab Values, Nursing to Teach Precautions for anti-coagulation therapy., Wound, if applicable, to be assessed every shift. and Stroke patients assessed for lethargy or change in status. Infection: Clinical Staff to Monitor for S/S of infection: and S/S of infection include fever, redness, warmth, etc. Urinary Tract Infection: Monitor for frequency, burning, discomfort, or incontinence. and Nursing will obtain urine sample for urinalysis and C&S when ordered. Aspiration: Clinical staff will monitor for coughing, drooling, congestion., Speech will evaluate swallowing and dsyphasia. and Nursing will monitor patient swallowing during meals. Falls: Patient will be evaluated for Fall Precautions and Patient will be placed on Fall Precautions as indicated per protocol. Skin Breakdown: Nursing will assess skin daily using assessment tool. and Nursing will place on Skin Breakdown Precautions as indicated. Pain: Clinical staff will assess patient's pain level per protocol., Medications will be given, if needed, and the pain level reassessed. and Other methods: Massage, distraction, decrease stimulus, etc. used PRN. Plan of Care Patient requires physician specializing in physical medicine and rehab oversight to provide close medical supervision of rehab issues including: Pain Management, Sleep Problems, Bowel and Bladder, Medical and co-morbidity Management, DVT prophylaxis, Rehabilitation Leadership and Coordination of treatment team Patient needs Physical Therapy: For a minimum of 1 hour and At least 5 out of 7 days Patient needs Physical Therapy to improve:: Mobility, Strengthening, Transfers, Stretching, ROM, Endurance, Stairs, Gait and Balance Patient needs Occupational Therapy: For a minimum of 1 hour and At least 5 out of 7 days Patient needs Occupational Therapy to improve ADL's incl.: Eating, Grooming, Bathing, Dressing, Toileting, Toilet transfers, Community Reintegration, Higher functioning activities, Household tasks, Adaptive Equipment, Splinting and Other activities as determined Patient requires speech therapy: For a minimum of 1 hour and At least 5 out of 7 days Patient requires speech therapy for: Swallowing, Cognition, Language Skills and Compensatory Strategies Patient requires 24/ Rehabilitation Nursing for: Pain Issues, Identifying and preventing risk factors, Monitoring and reporting current medical conditions, Assisting with ambulation, transfer, and all ADL's, Teaching patients about dise ase process and medications, Family teaching, Providing safe environment, Bowel and Bladder Issues, Skin integrity and Medication Management Patient needs Equipment Sterilizer/ Case Management for: Discharge Planning, Arranging Home Equipment or Services and Family Interventions Patient needs Dietary and Nutrition Services for: Adequate Nutrition, Nutriti onal Supplements and Nutritional Education Goals Goals Patient will remain: free from falls Patient will perform eating at: MOD I level of assist. Patient will perform bed mobility at: MOD I level of assist. Patient will complete transfers from bed to chair at: - (Independently) Patient will ambulate: - (500 feet on various surfaces independently) Patient will complete upper body dressing at: - (Independently) Patient will complete lower body dressing at: - (Independent) Patient will complete toilet transfer at: - (Independent) Patient will complete toileting at: - (Independent) Patient will perform bathing at: - (She will complete upper body bathing independently and lower body bathing at independent with adaptive equipment as needed.) Patient will perform Tub/Shower transfer at: - (Supervision using DME as needed.) Patient will complete grooming at: - (Independently while standing at the sink) Patient will complete home management skills at: - (Independent) Patient will achieve: - (14 steps with 1 handrail at standby assist to allow access to her home.) Patient will have pain level of: of 3 or less Patient's skin will: remain intact Patient will receive: adequate nutrition. Discharge Planning Pt Prognosis for Sig. Practical Improv. w/in Reasonable Time: Good Estimated Length of stay (days): 14 Anticipated D/C Destination: Home with Outpt Therapy Was Preadmission Assessment Accurate?: Yes
[2024-07-18 16:52] LABS: Bacteria 0 SEEN /hpf (None Seen); Mucous, Urine 0 SEEN /hpf (<or=2+); Red Blood Cells-Urine 0 SEEN /hpf (0-5); Squamous Epithelial Cells - UA 0 SEEN /hpf (5-10); White Blood Cells 0 SEEN /hpf (0-5)
[2024-07-18 16:55] LABS: Color, Urine Yellow (Yellow); Glucose, Dipstick Normal (Normal); Ketone-Dipstick Negative (Negative); Leukocyte Esterase-Dipstick Negative /ul (Negative); Nitrite-Dipstick Negative (Negative); Occult Blood-Urine Negative /ul (Negative); Protein-Dipstick Negative (Negative); Specific Gravity, Urine 1.005 (1.002-1.030); Urine Bilirubin Dipstick Negative (Negative); Urine Clarity Clear (Clear); Urine Urobilinogen Normal (Normal)
[2024-07-18 17:08] LABS: Bedside Glucose 140 mg/dL (74-106)
[2024-07-18 17:42] VITALS: BP 116/78; PULSE 66; RESP 16; TEMP 36.3; O2SAT 99
[2024-07-18] MEDS: Senna/Docusate Sodium 1 Tablet 2 TABLET PO (20:55)
[2024-07-18] MEDS: Famotidine 20 MG Tablet PO (20:55)
[2024-07-18] MEDS: Zolpidem Tartrate 5 MG Tablet PO (20:56)
[2024-07-18] MEDS: Atorvastatin Calcium 20 MG Tablet PO (20:56)
[2024-07-18] MEDS: Acetaminophen 325 MG Tablet 650 MG PO (20:56)
[2024-07-19 01:52] LABS: Bedside Glucose 164 mg/dL (74-106)
[2024-07-19 06:00] VITALS: BP 126/76; PULSE 66; RESP 16; TEMP 36.7; O2SAT 96
[2024-07-19] MEDS: Levothyroxine 100 MCG Tablet PO (06:07)
[2024-07-19] MEDS: oxyCODONE 5 MG Tablet PO ×3 (06:08→21:27)
[2024-07-19 07:01] LABS: Bedside Glucose 144 mg/dL (74-106)
[2024-07-19 08:22] LABS: Absolute Lymphocyte Count 2.88 X10^3/uL (0.83-4.51); Basophil# 0.02 X10^3/uL; Basophil% 0.2 % (0-1); Eosinophil# 0.04 X10^3/uL; Eosinophils% 0.4 % (0-5); Hematocrit 36.6 % (37-47); Hemoglobin 12.5 g/dL (12.0-15.0); Lymphocyte # 2.88 X10^3/ul (0.83-4.51); Lymphocyte % 29.4 % (19-41); Mean Corp Hgb Conc 34.2 g/dL (32-36); Mean Corpuscular Hgb 31.3 pg (27.0-32.0); Mean Corpuscular Volume 91.5 fL (81-99); Mean Platelet Vol. 10.9 fl (6.2-12.0); Monocyte# 0.78 X10^3/uL; NRBC Flagged by Analyzer 0 % (0-5); Neutrophil # 6.01 X10^3/uL (2.7-7.7); Neutrophil % 61.3 % (47-70); Platelet Count 241 K/mm3 (150-450); RBC Distribution Width CV 12.9 % (11.6-14.6); RBC Distribution Width SD 43.4 fl (35.1-43.9); White Blood Count 9.8 K/mm3 (4.4-11.0)
[2024-07-19] MEDS: Losartan Potassium 50 MG Tablet PO (08:25)
[2024-07-19] MEDS: metFORMIN HCl 500 MG Tablet PO (08:25)
[2024-07-19 08:26] VITALS: BP 126/76; PULSE 66
[2024-07-19] MEDS: PARoxetine CR 12.5 MG Tablet 25 MG PO (08:26)
[2024-07-19] MEDS: Senna/Docusate Sodium 1 Tablet 2 TABLET PO (08:26)
[2024-07-19] MEDS: Metoprolol(XL)Succ 100 MG Tablet PO (08:26)
[2024-07-19 09:03] LABS: AST(SGOT) 23 U/L (15-37); Alanine Aminotransfer ALT/SGPT 23 U/L (13-56); Albumin, Serum 3.6 g/dL (3.2-5.0); Alkaline Phosphatase 62 U/L (45-117); Anion Gap 9 (5-15); BUN 20 mg/dL (7-18); BUN/Creat Ratio 26.5 RATIO (10-20); Calcium,Total 9.1 mg/dL (8.5-10.1); Chloride 104 mmol/L (98-107); Creatinine, Serum 0.75 mg/dL (0.55-1.02); EST Glomerular Filtration Rate 81 mL/min (>60); Est Glom Filt Rate - Afr Amer 98 mL/min (>60); Globulin 3.6 g/dL (2.2-4.2); Glucose 131 mg/dL (74-106); Magnesium 1.9 mg/dL (1.6-2.6); Phosphorus 2.8 mg/dL (2.5-4.9); Potassium 3.5 mmol/L (3.5-5.1); Protein, Total 7.2 g/dL (6.4-8.2); Sodium Level 137 mmol/L (136-145)
[2024-07-19 10:29] LABS: Hemoglobin A1c 5.8 % (3.8-5.6)
[2024-07-19 11:59] LABS: Bedside Glucose 107 mg/dL (74-106)
--- NOTE | 2024-07-19 12:03 | NURSING ---
Spoke with Jeana WHITING with Dr. Casper office regarding staple removal. She states lópez can be removed on 07/24/24. She also states that patient does not need to f/u with them unless there is an issue with the incision.
[2024-07-19 12:04] VITALS: BMI 22.8
--- NOTE | 2024-07-19 15:54 | CASEMGMT ---
Social Work SW requested pt provide copies of advanced directives to place on file. Pt agreed. Jane Hawthorne, [employer] SUPERVISOR SERVER ADMINISTRATOR
--- NOTE | 2024-07-19 16:07 | PCM.PROGNOTE ---
Subjective Subjective Afebrile VSS -blood pressure has ranged from 116/78 to 123/83 since admission to rehab. Heart rate is within normal limits. Maintaining appropriate oxygen saturation on RA-96 to 99%. Oral intake - FOOD good FLUIDS fair Discussed with nursing - no problems that need addressed. Slept well last night Reviewed the THERAPY notes Medication list reviewed. Denies cephalgia today. She also denies lightheadedness. Denies vertigo, CP, SOB, calf pain. Tells me she slept well after Ambien last night. All lab drawn this morning was personally reviewed. The white blood cell count is normal at 9.8 and the hemoglobin is normal at 12.5. Platelets are within normal limits. The sodium is 137 and the potassium is borderline low at 3.5. BUN is elevated at 20 with a creatinine of 0.5. She was taking hydrochlorothiazide at admission to rehab but this was discontinued at admission. Fasting glucose today was 131 and the hemoglobin A1c is elevated at 5.8%. She is a known type II diabetic and is on Glucophage 500 mg once a day. Calcium, magnesium, phosphorus and LFTs are all normal. Objective Data Objective Data Vital Signs: Vital Signs Temp Pulse Resp BP Pulse Ox O2 Del Method 98.1 F 66 16 126/76 H 96 Room Air 07/19/24 06:00 07/19/24 08:26 07/19/24 06:00 07/19/24 08:26 07/19/24 06:00 07/19/24 08:56 Oxygen Delivery Method Room Air Weight: 116 lb 8 oz Body Mass Index (BMI) 22.8 Intake & Output: Intake and Output for Last 24 Hours 07/17/24 07/18/24 07/19/24 23:59 23:59 23:59 Intake Total 440 / 440 1000 / 1000 Output Total 900 / 900 1250 / 1250 Balance -460 / -460 -250 / -250 Lab / Micro Data 07/19/24 08:02 07/19/24 08:02 Labs: Laboratory Results - last 24 hr 07/18/24 16:20: Urine Color Yellow, Urine Clarity Clear, Urine pH 7.0, Ur Specific [place] 1.005, Urine Protein Negative, Urine Glucose (UA) Normal, Urine Ketones Negative, Urine Occult Blood Negative, Urine Nitrite Negative, Urine Bilirubin Negative, Urine Urobilinogen Normal, Ur Leukocyte Esterase Negative, Urine RBC 0 SEEN, Urine WBC 0 SEEN, Ur Squamous Epith Cells 0 SEEN, Urine Bacteria 0 SEEN, Urine Mucus 0 SEEN 07/18/24 16:40: POC Glucose 140 H 07/19/24 01:22: POC Glucose 164 H 07/19/24 06:16: POC Glucose 144 H 07/19/24 08:02: WBC 9.8, RBC 4.00 L, Hgb 12.5, Hct 36.6 L, MCV 91.5, MCH 31.3, MCHC 34.2, RDW Std Deviation 43.4, RDW Coeff of Nora 12.9, Plt Count 241, MPV 10.9, Immature Gran % (Auto) 0.700, Neut % (Auto) 61.3, Lymph % (Auto) 29.4, [place] % (Auto) 8.0, Eos % (Auto) 0.4, Baso % (Auto) 0.2, Absolute Neuts (auto) 6.0, Absolute Lymphs (auto) 2.88, Nucleated RBC % 0, Sodium 137, Potassium 3.5, Chloride 104, Carbon Dioxide 24.0, Anion Gap 9, BUN 20 H, Creatinine 0.75, Estim Creat Clear Calc 47.00, Est GFR (MDRD) Af Amer 98, Est GFR (MDRD) Non-Af 81, BUN/Creatinine Ratio 26.5 H, Glucose 131 H, Hemoglobin A1c 5.8 H, Calcium 9.1, Phosphorus 2.8, Magnesium 1.9, Total Bilirubin 0.60, AST 23, ALT 23, Alkaline Phosphatase 62, Total Protein 7.2, Albumin 3.6, Globulin 3.6, Albumin/Globulin Ratio 1.0 07/19/24 11:41: POC Glucose 107 H Physical Exam Const alert, oriented x3 and no apparent distress Resp normal respiratory effort, normal air movement and clear to auscultation bilaterally Effort and Inspection: able to speak in complete sentences Cardio regular rate, regular rhythm, no murmurs and no gallops Cardio Narrative: No ectopy GI normal to inspection, nondistended, normoactive bowel sounds, soft to palpation and non-tender GI Narrative: No guarding with palpation Extremity no calf tenderness and no pedal edema Assessment & Plan Assessment/Plan (1) Debility: (2) Meningioma, cerebral: (3) Hx of craniotomy: (4) Cognitive dysfunction: (5) Generalized weakness: (6) Disequilibrium: (7) Diabetes mellitus: QUALIFIERS: Diabetes mellitus type: type 2 Diabetes mellitus assistant terminal manager insulin use: without assistant terminal manager use Diabetes mellitus complication status: without complication Qualified Code(s): E11.9 - Type 2 diabetes mellitus without complications (8) Essential hypertension: (9) Hyperlipidemia: QUALIFIERS: Hyperlipidemia type: unspecified Qualified Code(s): E78.5 - Hyperlipidemia, unspecified (10) Anxiety and depression: (11) Insomnia: QUALIFIERS: Insomnia type: drug-induced Qualified Code(s): F19.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 Continue therapy 2. 20 mEq of potassium twice daily x 3 doses. 3. Decrease the Accu-Cheks to twice daily-diabetes mellitus type 2 is very well-controlled. 4. Encouraged increased fluid intake Charges/Coding Visit Charges Inpatient E&M: 68703 [facility] Hosp L1
[2024-07-19] MEDS: Potassium Chloride Oral Tablet 20 MEQ PO (17:19)
[2024-07-19 17:58] VITALS: BP 107/71; PULSE 64; RESP 18; TEMP 36.4; O2SAT 96
[2024-07-19] MEDS: Acetaminophen 325 MG Tablet 650 MG PO (21:23)
[2024-07-19] MEDS: Zolpidem Tartrate 5 MG Tablet PO (21:23)
[2024-07-19] MEDS: Famotidine 20 MG Tablet PO (21:23)
[2024-07-19] MEDS: Atorvastatin Calcium 20 MG Tablet PO (21:23)
[2024-07-20 06:00] VITALS: BP 130/77; PULSE 62; RESP 18; TEMP 36.9; O2SAT 96
[2024-07-20] MEDS: Levothyroxine 100 MCG Tablet PO (06:30)
[2024-07-20 07:24] LABS: Bedside Glucose 99 mg/dL (74-106)
[2024-07-20 07:59] VITALS: PULSE 62
[2024-07-20] MEDS: Potassium Chloride Oral Tablet 20 MEQ PO ×2 (07:59→16:55)
[2024-07-20] MEDS: Metoprolol(XL)Succ 100 MG Tablet PO (07:59)
[2024-07-20] MEDS: oxyCODONE 5 MG Tablet PO ×4 (08:00→23:38)
[2024-07-20] MEDS: Losartan Potassium 50 MG Tablet PO (08:00)
[2024-07-20] MEDS: PARoxetine CR 12.5 MG Tablet 25 MG PO (08:00)
[2024-07-20] MEDS: metFORMIN HCl 500 MG Tablet PO (08:02)
[2024-07-20] MEDS: Acetaminophen 325 MG Tablet 650 MG PO (16:55)
[2024-07-20 17:17] LABS: Bedside Glucose 111 mg/dL (74-106)
[2024-07-20 17:31] VITALS: BP 111/64; PULSE 61; RESP 16; TEMP 36.8; O2SAT 95
[2024-07-20] MEDS: Atorvastatin Calcium 20 MG Tablet PO (20:08)
[2024-07-20] MEDS: Zolpidem Tartrate 5 MG Tablet PO (20:08)
[2024-07-20] MEDS: Famotidine 20 MG Tablet PO (20:09)
[2024-07-20] MEDS: Senna/Docusate Sodium 1 Tablet 2 TABLET PO (20:09)
[2024-07-21] MEDS: oxyCODONE 5 MG Tablet PO ×2 (04:58→14:01)
[2024-07-21] MEDS: Levothyroxine 100 MCG Tablet PO (04:59)
[2024-07-21 06:00] VITALS: BP 119/76; PULSE 60; RESP 16; TEMP 36.5; O2SAT 97
[2024-07-21 06:20] LABS: Bedside Glucose 103 mg/dL (74-106)
[2024-07-21] MEDS: metFORMIN HCl 500 MG Tablet PO (08:32)
[2024-07-21] MEDS: Losartan Potassium 50 MG Tablet PO (10:38)
[2024-07-21 10:39] VITALS: BP 103/61; PULSE 60
[2024-07-21] MEDS: PARoxetine CR 12.5 MG Tablet 25 MG PO (10:39)
[2024-07-21] MEDS: Metoprolol(XL)Succ 100 MG Tablet PO (10:39)
[2024-07-21] MEDS: Acetaminophen 325 MG Tablet 650 MG PO ×2 (10:47→19:59)
[2024-07-21 18:13] VITALS: BP 103/61; PULSE 72; RESP 17; TEMP 36.7; O2SAT 96
[2024-07-21 18:30] LABS: Bedside Glucose 187 mg/dL (74-106)
[2024-07-21] MEDS: Zolpidem Tartrate 5 MG Tablet PO (19:58)
[2024-07-21] MEDS: Atorvastatin Calcium 20 MG Tablet PO (19:59)
[2024-07-22] MEDS: oxyCODONE 5 MG Tablet PO ×3 (03:45→21:36)
[2024-07-22] MEDS: Levothyroxine 100 MCG Tablet PO (05:27)
[2024-07-22 05:39] VITALS: BP 113/65; PULSE 64; RESP 15; TEMP 36.3; O2SAT 97
[2024-07-22 05:53] LABS: Bedside Glucose 106 mg/dL (74-106)
[2024-07-22 07:42] VITALS: PULSE 64
[2024-07-22] MEDS: metFORMIN HCl 500 MG Tablet PO (07:42)
[2024-07-22] MEDS: Losartan Potassium 50 MG Tablet PO (07:42)
[2024-07-22] MEDS: PARoxetine CR 12.5 MG Tablet 25 MG PO (07:42)
[2024-07-22] MEDS: Metoprolol(XL)Succ 100 MG Tablet PO (07:42)
--- NOTE | 2024-07-22 09:14 | PN_ITS ---
Subjective Subjective Luisa was seen on team rounds today. Her significant other, Edward, and her daughter, Meme, were present in the room. Afebrile VSS - Maintaining appropriate oxygen saturation on RA Oral intake - FOOD good FLUIDS good Discussed with nursing - has been getting up and ambulating in her room without assist.....reminded by nursing to ask for help. Reviewed the THERAPY notes Medication list reviewed. Review of systems is negative with the exception of headache and neck pain. It seems to bother her most at night when she is trying to sleep. She has some pain with palpation of the trapezius muscles, ami on the left. Full ROM with cervical rotation Left with restricted cervical rotation to the R and restricted cervical side bending BL. able to touch the chin to the chest. Denies chest pain, shortness of breath, palpitations, cough, nausea/vomiting/abdominal pain, dysuria and calf tenderness. Ambulating without assistive device at this time. Objective Data Objective Data Vital Signs: Vital Signs Temp Pulse Resp BP Pulse Ox O2 Del Method 97.3 F L 64 15 113/65 97 Room Air 07/22/24 05:39 07/22/24 07:42 07/22/24 05:39 07/22/24 05:39 07/22/24 05:39 07/22/24 05:39 Oxygen Delivery Method Room Air Weight: 116 lb 8 oz Body Mass Index (BMI) 22.8 Intake & Output: Intake and Output for Last 24 Hours 07/20/24 07/21/24 07/22/24 23:59 23:59 23:59 Intake Total 2110 / 2110 1979 / 1979 560 / 560 Output Total 1900 / 1900 400 / 400 Balance 210 / 210 1580 / 1580 560 / 560 Lab / Micro Data 07/19/24 08:02 07/19/24 08:02 Labs: Laboratory Results - last 24 hr 07/21/24 18:06: POC Glucose 187 H 07/22/24 05:33: POC Glucose 106 Physical Exam Const alert, oriented x3 and no apparent distress General Appearance: cooperative Resp normal respiratory effort and clear to auscultation bilaterally Cardio regular rate, regular rhythm and no gallops Cardio Narrative: No ectopy GI normal to inspection, nondistended, normoactive bowel sounds, soft to palpation and non-tender Extremity no calf tenderness General Extremity: Negative for edema Skin Skin Narrative: Craniotomy incision is intact with no dehiscence, no chris-incisional erythema and no discharge. General Skin Exam: no breakdown Rashes: no rashes Assessment & Plan Assessment/Plan (1) Debility: (2) Meningioma, cerebral: (3) Hx of craniotomy: (4) Cognitive dysfunction: (5) Generalized weakness: (6) Disequilibrium: (7) Diabetes mellitus: QUALIFIERS: Diabetes mellitus complication status: without complication Diabetes mellitus penitentiary insulin use: without penitentiary use D iabetes mellitus type: type 2 Qualified Code(s): E11.9 - Type 2 diabetes mellitus without complications (8) Essential hypertension: (9) Cephalgia: QUALIFIERS: Headache type: unspecified (10) Muscle spasm: PLAN: Plan 1. Continue therapy 2. Change the Ambien to as needed. Start Zanaflex at HS. 3. Arthritis cream to the shoulders BL BID. 4. Plan discharge home on Monday with outpatient PT and speech therapy Charges/Coding Visit Charges Inpatient E&M: 62931 Subs Hosp L2
--- NOTE | 2024-07-22 14:16 | CASEMGMT ---
IDT meeting held with pt, pt's partner Edward and pt's dgt present. PT/OT/ST/SN discussed pt's progress throughout stay. Pt is doing well with therapy and making much progress. SW explained that Medicare has allowed 9 days with dc of 07/27/24. Pt is agreeable to discharge on Monday. Therapy is recommending outpatient PT/ST and pt is agreeable and will receive this at [facility]. PT does not need any DME at this time. Plan to dc home with partner Edward on 07/27/24 and outpatient PT/ST. Referral made to [facility] for ST and PT. FAUSTINO Pinto
[2024-07-22] MEDS: Acetaminophen 325 MG Tablet 650 MG PO ×2 (14:35→21:36)
[2024-07-22] MEDS: Arthritis Pain Compound 60 CLICK TUBE TOPICAL (14:36)
--- NOTE | 2024-07-22 16:17 | CASEMGMT ---
Social Work [facility] appointments made for 07/30/24 at 1130 and [address] Information entered on pt's dc paperwork and appointments given to pt. Discharge Date: 07/27/24 Discharge Disposition: home with partner. Outpatient PT/ST FAUSTINO Pinto
[2024-07-22 16:43] LABS: Bedside Glucose 104 mg/dL (74-106)
[2024-07-22 18:00] VITALS: BP 126/74; PULSE 62; RESP 16; TEMP 36.8; O2SAT 97
[2024-07-22] MEDS: Atorvastatin Calcium 20 MG Tablet PO (21:31)
[2024-07-22] MEDS: tiZANidine HCl 2 MG Tablet PO (21:31)
[2024-07-23] MEDS: Levothyroxine 100 MCG Tablet PO (06:38)
[2024-07-23] MEDS: Arthritis Pain Compound 60 CLICK TUBE TOPICAL ×2 (06:38→13:58)
[2024-07-23] MEDS: Acetaminophen 325 MG Tablet 650 MG PO ×2 (06:47→20:40)
[2024-07-23 06:48] VITALS: BP 111/71; PULSE 71; RESP 18; TEMP 36.4; O2SAT 96
[2024-07-23 06:50] LABS: Bedside Glucose 109 mg/dL (74-106)
[2024-07-23 09:02] VITALS: BP 111/71; PULSE 71
[2024-07-23] MEDS: Losartan Potassium 50 MG Tablet PO (09:02)
[2024-07-23] MEDS: Metoprolol(XL)Succ 100 MG Tablet PO (09:02)
[2024-07-23] MEDS: metFORMIN HCl 500 MG Tablet PO (09:02)
[2024-07-23] MEDS: PARoxetine CR 12.5 MG Tablet 25 MG PO (09:02)
--- NOTE | 2024-07-23 12:17 | PCM.PROGNOTE ---
Subjective Subjective Afebrile VSS -blood pressure is within goal. Heart rate is within normal limits. Maintaining appropriate oxygen saturation on RA Oral intake - FOOD good FLUIDS good Discussed with nursing - no problems that need addressed Reviewed the THERAPY notes Medication list reviewed. She tells me she slept much better last night. The neck pain has improved with Zanaflex at bedtime and arthritis cream twice daily. Denies headache today and also denies neck pain. Denies vertigo. No chest pain, shortness of breath no chest pain, shortness of breath, palpitations, dysuria and calf tenderness. A Objective Data Objective Data Vital Signs: Vital Signs Temp Pulse Resp BP Pulse Ox O2 Del Method 97.5 F L 71 18 111/71 96 Room Air 07/23/24 06:48 07/23/24 09:02 07/23/24 06:48 07/23/24 09:02 07/23/24 06:48 07/23/24 06:48 Oxygen Delivery Method Room Air Weight: 116 lb 8 oz Body Mass Index (BMI) 22.8 Intake & Output: Intake and Output for Last 24 Hours 07/21/24 07/22/24 07/23/24 23:59 23:59 23:59 Intake Total 1979 / 1979 1935 / 1935 Output Total 400 / 400 1475 / 1475 400 / 400 Balance 1580 / 1580 460 / 460 -400 / -400 Lab / Micro Data 07/19/24 08:02 07/19/24 08:02 Labs: Laboratory Results - last 24 hr 07/22/24 16:25: POC Glucose 104 07/23/24 06:31: POC Glucose 109 H Physical Exam Const alert, oriented x3 and no apparent distress General Appearance: cooperative HEENT normocephalic, hearing grossly normal bilaterally and external nose normal Eyes PERRL, EOMs intact bilaterally, conjunctivae normal and no scleral icterus Eyes Narrative: No discharge from the eyes. No visual field cuts. No visual extinction. No nystagmus. Neck supple, no JVD and no carotid bruits Neck Narrative: Palpation of the trapezius muscles is softer today with much less spasm. She had no pain with palpation today. Better range of motion with cervical rotation and sidebending. General: trachea midline Chest Chest: symmetrical chest wall rise Resp normal respiratory effort and clear to auscultation bilaterally Effort and Inspection: able to speak in complete sentences Cardio regular rate, regular rhythm and no gallops Cardio Narrative: No ectopy GI normal to inspection, nondistended, normoactive bowel sounds, soft to palpation and non-tender GI Narrative: No guarding with palpation no CVA tenderness Extremity no calf tenderness Extremity Narrative: No clubbing General Extremity: Negative for edema Skin Skin Narrative: Craniotomy incision is intact with no dehiscence, no chris-incisional erythema and no discharge. General Skin Exam: no breakdown Rashes: no rashes Wound Narrative: Craniotomy incision is located over the left occiput. The incision is intact and held together with lópez. There is no dehiscence and there is no purulent discharge. There is no chris-incisional erythema and no significant swelling around the incision. Neuro oriented x3, CN's II-XII intact bilaterally, moves all extremities, no focal motor deficits and no sensory deficits noted Neuro Narrative: No ataxia, no extinction. No dysarthria and no aphasia. Some mild cognitive dysfunction. Occasional difficulty with word finding and recognizes that her thinking is slower than it had been. Psych cooperative, affect normal, speech normal, denies hallucinations, denies homicidal ideation and denies suicidal ideation Psych Narrative: Tells me she is having trouble staying asleep at night. She sleeps for about an hour and then awakens. This may be secondary to Decadron that she has been getting every 6 hours. Attitude: calm and engaged Activity / Motor Behavior: appropriate eye contact Speech: normal speech Mood & Affect: euthymic mood Assessment & Plan Assessment/Plan (1) Debility: (2) Meningioma, cerebral: (3) Hx of craniotomy: (4) Cognitive dysfunction: (5) Generalized weakness: (6) Disequilibrium: (7) Diabetes mellitus: QUALIFIERS: Diabetes mellitus type: type 2 Diabetes mellitus correction insulin use: without correction use Diabetes mellitus complication status: without complication Qualified Code(s): E11.9 - Type 2 diabetes mellitus without complications (8) Essential hypertension: (9) Cephalgia: QUALIFIERS: Headache type: unspecified (10) Muscle spasm: PLAN: Plan 1. Continue therapy Charges/Coding Visit Charges Inpatient E&M: 79028 Subs Hosp L1
[2024-07-23] MEDS: oxyCODONE 5 MG Tablet PO ×2 (15:42→20:40)
[2024-07-23 19:47] VITALS: BP 116/70; PULSE 70; RESP 17; TEMP 36.6; O2SAT 96
[2024-07-23] MEDS: Atorvastatin Calcium 20 MG Tablet PO (20:39)
[2024-07-23] MEDS: Senna/Docusate Sodium 1 Tablet 2 TABLET PO (20:41)
[2024-07-23] MEDS: tiZANidine HCl 2 MG Tablet PO (20:42)
[2024-07-23 22:49] LABS: Bedside Glucose 109 mg/dL (74-106)
[2024-07-24 06:00] VITALS: BP 114/70; PULSE 70; RESP 16; TEMP 36.4; O2SAT 94; BMI 23.3
[2024-07-24] MEDS: Levothyroxine 100 MCG Tablet PO (06:05)
[2024-07-24] MEDS: Arthritis Pain Compound 60 CLICK TUBE TOPICAL ×2 (06:06→16:30)
[2024-07-24] MEDS: Acetaminophen 325 MG Tablet 650 MG PO ×2 (06:34→16:49)
[2024-07-24 07:31] LABS: Bedside Glucose 121 mg/dL (74-106)
[2024-07-24] MEDS: Losartan Potassium 50 MG Tablet PO (08:51)
[2024-07-24 08:52] VITALS: PULSE 70
[2024-07-24] MEDS: Senna/Docusate Sodium 1 Tablet 2 TABLET PO (08:52)
[2024-07-24] MEDS: Metoprolol(XL)Succ 100 MG Tablet PO (08:52)
[2024-07-24] MEDS: PARoxetine CR 12.5 MG Tablet 25 MG PO (08:52)
[2024-07-24] MEDS: metFORMIN HCl 500 MG Tablet PO (08:52)
[2024-07-24 17:42] VITALS: BP 104/63; PULSE 64; RESP 16; TEMP 36.6; O2SAT 97
[2024-07-24] MEDS: Atorvastatin Calcium 20 MG Tablet PO (19:54)
[2024-07-24] MEDS: tiZANidine HCl 2 MG Tablet PO (19:54)
[2024-07-24] MEDS: oxyCODONE 5 MG Tablet PO (19:57)
[2024-07-24] MEDS: Zolpidem Tartrate 5 MG Tablet PO (19:57)
[2024-07-25 05:15] VITALS: BP 110/63; PULSE 62; RESP 16; TEMP 36.6; O2SAT 95
[2024-07-25] MEDS: Levothyroxine 100 MCG Tablet PO (05:16)
[2024-07-25] MEDS: Arthritis Pain Compound 60 CLICK TUBE TOPICAL (05:16)
[2024-07-25 06:24] LABS: Bedside Glucose 111 mg/dL (74-106)
[2024-07-25 07:48] VITALS: BP 110/63; PULSE 62
[2024-07-25] MEDS: PARoxetine CR 12.5 MG Tablet 25 MG PO (07:48)
[2024-07-25] MEDS: Metoprolol(XL)Succ 100 MG Tablet PO (07:48)
[2024-07-25] MEDS: Losartan Potassium 50 MG Tablet PO (07:49)
[2024-07-25] MEDS: metFORMIN HCl 500 MG Tablet PO (07:49)
[2024-07-25] MEDS: Acetaminophen 325 MG Tablet 650 MG PO ×2 (07:51→20:01)
--- NOTE | 2024-07-25 11:15 | PCM.PROGNOTE ---
Subjective Subjective Afebrile VSS - Maintaining appropriate oxygen saturation on RA Oral intake - FOOD good FLUIDS good Discussed with nursing - no problems that need addressed Reviewed the THERAPY notes Medication list reviewed. Took a as needed Ambien 5 mg at at bedtime last night. she tells me that the cephalgia is much better today. Denies neck pain. Karuna removed yesterday. Denies chest pain, palpitations, lightheadedness, shortness of breath, cough, calf pain. Objective Data Objective Data Vital Signs: Vital Signs Temp Pulse Resp BP Pulse Ox O2 Del Method 97.8 F 62 16 110/63 95 Room Air 07/25/24 05:15 07/25/24 07:48 07/25/24 05:15 07/25/24 07:48 07/25/24 05:15 07/25/24 05:15 Oxygen Delivery Method Room Air Weight: 118 lb 9.739 oz Body Mass Index (BMI) 23.3 Intake & Output: Intake and Output for Last 24 Hours 07/23/24 07/24/24 07/25/24 23:59 23:59 23:59 Intake Total 400 / 700 1900 / 1900 Output Total 700 / 700 Balance -300 / 0 1900 / 1900 Lab / Micro Data 07/19/24 08:02 07/19/24 08:02 Labs: Laboratory Results - last 24 hr 07/25/24 05:15: POC Glucose 111 H Physical Exam Const alert and oriented x3 Resp normal respiratory effort and clear to auscultation bilaterally Effort and Inspection: able to speak in complete sentences Cardio regular rate, regular rhythm and no gallops Cardio Narrative: No ectopy GI normal to inspection, nondistended, normoactive bowel sounds, soft to palpation and non-tender GI Narrative: No guarding with palpation Extremity no calf tenderness General Extremity: Negative for edema Skin Wound Narrative: Karuna were removed. The incision is intact with no dehiscence and no Dc. There is no chris-incisional erythema. At the inferior pole of the incision there is a mushy fluid collection. No tenderness to palpation. she is AF. I suspect this is a small seroma or hematoma. There is no warmth to touch. Assessment & Plan Assessment/Plan (1) Seroma after procedure: PLAN: Plan 1. Continue therapy 2. Check a CBC, BMP and mag in the a.m. 3. Monitor the seroma for any sign of infection closely. Charges/Coding Visit Charges Inpatient E&M: 96702 Subs Hosp L1
[2024-07-25 17:08] VITALS: BP 95/54; PULSE 64; RESP 16; TEMP 36.4; O2SAT 97
[2024-07-25 17:30] LABS: Bedside Glucose 153 mg/dL (74-106)
[2024-07-25] MEDS: tiZANidine HCl 2 MG Tablet PO (20:01)
[2024-07-25] MEDS: Atorvastatin Calcium 20 MG Tablet PO (21:04)
[2024-07-25] MEDS: Senna/Docusate Sodium 1 Tablet 2 TABLET PO (21:04)
[2024-07-25] MEDS: Zolpidem Tartrate 5 MG Tablet PO (21:04)
[2024-07-26 06:00] VITALS: BP 119/68; PULSE 66; RESP 16; TEMP 36.9; O2SAT 95
[2024-07-26] MEDS: Levothyroxine 100 MCG Tablet PO (06:04)
[2024-07-26 06:30] LABS: Absolute Lymphocyte Count 2.33 X10^3/uL (0.83-4.51); Absolute Neutrophil Count 4.3 X10^3/uL (2.0-7.7); Basophil# 0.06 X10^3/uL; Basophil% 0.8 % (0-1); Eosinophils% 3.8 % (0-5); Hematocrit 34.3 % (37-47); Hemoglobin 11.6 g/dL (12.0-15.0); Lymphocyte # 2.33 X10^3/ul (0.83-4.51); Lymphocyte % 29.6 % (19-41); Mean Corp Hgb Conc 33.8 g/dL (32-36); Mean Corpuscular Hgb 31.5 pg (27.0-32.0); Mean Corpuscular Volume 93.2 fL (81-99); Mean Platelet Vol. 10.2 fl (6.2-12.0); Monocyte# 0.87 X10^3/uL; NRBC Flagged by Analyzer 0 % (0-5); Neutrophil # 4.26 X10^3/uL (2.7-7.7); Platelet Count 284 K/mm3 (150-450); RBC Distribution Width SD 44.6 fl (35.1-43.9); Red Blood Count 3.68 M/mm3 (4.2-5.4); White Blood Count 7.9 K/mm3 (4.4-11.0)
[2024-07-26 06:58] LABS: Anion Gap 4 (5-15); BUN 14 mg/dL (7-18); BUN/Creat Ratio 21.1 RATIO (10-20); Chloride 108 mmol/L (98-107); Creatinine, Serum 0.66 mg/dL (0.55-1.02); EST Glomerular Filtration Rate 93 mL/min (>60); Est Glom Filt Rate - Afr Amer 113 mL/min (>60); Glucose 120 mg/dL (74-106); Magnesium 1.9 mg/dL (1.6-2.6); Potassium 3.9 mmol/L (3.5-5.1); Sodium Level 139 mmol/L (136-145)
[2024-07-26 07:25] LABS: Bedside Glucose 127 mg/dL (74-106)
[2024-07-26 08:22] VITALS: BP 139/68; PULSE 88
[2024-07-26] MEDS: Losartan Potassium 50 MG Tablet PO (08:22)
[2024-07-26] MEDS: Metoprolol(XL)Succ 100 MG Tablet PO (08:22)
[2024-07-26] MEDS: metFORMIN HCl 500 MG Tablet PO (08:22)
[2024-07-26] MEDS: PARoxetine CR 12.5 MG Tablet 25 MG PO (08:23)
[2024-07-26] MEDS: Acetaminophen 325 MG Tablet 650 MG PO ×2 (08:27→20:35)
--- NOTE | 2024-07-26 09:30 | PCM.DC ---
Discharge Instructions Diet Discharge Diet: Carb Control Diet and - (low fat) DC O2, CPAP, BIPAP needs Home O2 Discharge instructions: No Dressing / Incision Discharge Activity: May Not Drive (No driving until okay with neurology/epilepsy clinic) and May Shower Weight Bearing Status: Full weight bearing Dressing / Incision Call your doctor if your incision/area has: Continuous Slow Oozing, Increased Pain/ Swelling, Increased Redness and Foul Smelling Discharge Call your doctor if you observe: Fever of 101 or Higher, Shortness of breath, Dizziness, Fainting spells, Swelling in the ankles, Chest pain, Increased palpitations (irregular heartbeat), Calf discomfort, Uncontrolled pain and - (STROKE symptoms: facial droop, slurred speech, inability to get words out, weakness on 1 side of the body and not the other, numbness on 1 side of the body and not the other, inability to maintain your balance sitting or standing, vertigo. ) Suture Line Care: Avoid Pulling/Pushing and Avoid Pinching/Bending Cleanse incision/area with: Soap & Water and - (No dressing needed. ) Follow Up Care Please Follow Up With: Roopa Gongora DO When: within 7-10 days post Discharge. You also need to follow up with neurosurgery at [facility]....Dr. jared Casper...appt is for 08/14/24 and is listed later in this document. Test Results: Test results from this visit will be discussed in further detail at your follow-up appointment, if applicable. Pending Tests Upon Discharge: none Discharge Plan Admission Admit Date/Time: 07/18/24 11:30 Primary Reason for Your Visit: Debility post craniotomy for meningioma excision. Attending Provider: Luisa Rivera Primary Care Provider: Roopa Gongora Instructions Patient Instructions: Caring for Your Incision Additional Instructions / Restrictions: 1. No driving until you are released by neurology to drive. You were on an anti-epileptic drug post operatively called Jose Elias. This was discontinued when you were transferred to acute inpatient rehab. Generally patients need to be seizure free for 6 months prior to returning to driving. 2. You have a small collection of fluid under the skin around the craniotomy incision. there is no sign of infection and it is not tender to the touch. You have no fever and your white blood cell count is normal. There is no redness around the incision and no increased warmth to the touch. The incision looks great and is healing very nicely. Have Edward look at the incision daily and if there is any discharge from the incision or any redness that starts to develop around the incision you should notify the surgeon or Dr. Gongora. 3. Your balance is much better than at admission to rehab BUT, if you are in a crowd of people and someone bumps into you I suspect you could lose your balance and fall. It may be a good idea to take a cane with you when you are out and about and going to be around a lot of people. 4. If you get worsening headaches let Dr. Gongora know. Make sure to stay well hydrated.......it helps to decrease headache with standing. do not bend over at the waist if you have a headache....this can increase the headache. I am giving you a prescription for the pain cream we have been using on your neck. You can only get this cream at the [facility] retail pharmacy.......the pharmacy mixes it up and it is a combination of a muscle relaxer, anesthetic and an anti-inflammatory. Unfortunately insurance does not cover this cream. It is not very expensive and I suspect you will not need this after a few weeks. We will give you what is left in the tube when you leave the hospital. you can wait to get the prescription filled until after you run out of the tube we give you at discharge. You may not need it after that but, if you do you will have the prescription. 5. You have had muscle spasms in your neck. We have been giving you a muscle relaxer by mouth at bedtime called Zanaflex (also called tizanidine). I am giving you a prescription for this medication to have filled if you need it.......you can take 1 tab every 8 hours as needed for neck pain/muscle spasm. 6. You were taking a diuretic called hydrochlorothiazide (also called HCTZ) at admission to rehab. You were dehydrated at admission to rehab so this was discontinued. Your blood pressure has been very well-controlled off hydrochlorothiazide. 7. If you or your family have any questions after you leave rehab please do not hesitate to call me. OFFICE: [phone] CELL: [phone] NURSES STATION ON REHAB: [phone] Discharge Orders/Prescriptions Prescriptions: New tizanidine 2 mg Tablet 2 mg PO Q8H PRN PRN (Reason: Neck pain/muscle spasm) Qty: 20 0RF Rx Instructions: Take 1 tab every 8 hours as needed for neck pain/muscle spasm Continued paroxetine HCl 25 mg tablet extended release 24 hr 25 mg PO DAILY metformin 500 mg tablet 500 mg PO DAILY levothyroxine 100 mcg tablet 100 mcg PO DAILY liothyronine 5 mcg tablet 5 mcg PO DAILY acetaminophen 325 mg capsule 650 mg PO Q4H PRN (Reason: pain) losartan 50 mg tablet 50 mg PO DAILY Qty: 30 0RF metoprolol succinate [Toprol XL] 100 mg tablet extended release 24 hr 100 mg PO DAILY Qty: 90 3RF Changed atorvastatin 20 mg tablet 20 mg PO DAILY Qty: 30 0RF Rx Instructions: TAKE 1 TABLET AT BEDTIME Held meloxicam 15 mg tablet 15 mg PO DAILY Hold Instructions: do not take this medication until Dr. Gongora or neurology tells you it is OK to restart Discontinued famotidine 20 mg tablet 20 mg PO QHS oxycodone 5 mg capsule 5 mg PO Q4H PRN (Reason: pain) dexamethasone 1 mg tablet 1 mg PO Q6H hydrochlorothiazide 12.5 mg tablet 12.5 mg PO DAILY Qty: 90 3RF Referrals / Follow Up: Jared Casper-Neurosurgedarnell [Other] - 08/14/24 9:15 am (you will see Caty-JOHANNE) Roopa Gongora DO [Primary Care Provider] - 08/01/24 9:30 am Disposition Disposition (needs filled in before D/C Order can be placed): Home, Self Care
--- NOTE | 2024-07-26 10:39 | DS.PCM_ITS ---
Providers Date of Admission: 07/18/24 Date of Discharge: 07/27/24 Primary Care Physician: Dr. Roopa Gongora DO Reason For Visit: CRANIOTOMY Diagnosis Discharge Diagnosis (1) Debility: Status: Acute Code(s): R53.81 - Other malaise (2) Meningioma, cerebral: Status: Chronic Code(s): D32.0 - Benign neoplasm of cerebral meninges (3) Hx of craniotomy: Status: Acute Code(s): Z98.890 - Other specified postprocedural states Plan: 07/14/[address] [facility] [address] Jared Casper. Follow up appt has been scheduled for 08/14/24. Left posterior incision. Suspected seroma at the incision site. (4) Cognitive dysfunction: Status: Acute Code(s): F09 - Unspecified mental disorder due to known physiological condition Plan: Will need continued speech therapy postdischarge from acute rehab. (5) Disequilibrium: Status: Acute Code(s): R42 - Dizziness and giddiness Plan: OP PT at [facility] post discharge from acute rehab. (6) Generalized weakness: Status: Acute Code(s): R53.1 - Weakness (7) Seroma after procedure: Status: Suspected (8) Acute blood loss anemia: Status: Acute Code(s): D62 - Acute posthemorrhagic anemia Plan: Hemoglobin at discharge from rehab is 11.6. (9) Essential hypertension: Status: Chronic Code(s): I10 - Essential (primary) hypertension Plan: Well-controlled at this time of discharge home metoprolol XL 100 mg daily and Cozaar 50 mg daily. Hydrochlorothiazide was discontinued at presentation to acute rehab due to intravascular volume depletion and lightheadedness. Blood pressure is well-controlled without hydrochlorothiazide. (10) Hyperlipidemia: Status: Chronic Code(s): E78.5 - Hyperlipidemia, unspecified Qualifiers: Hyperlipidemia type: unspecified Qualified Code(s): E78.5 - Hyperlipidemia, unspecified Plan: Continue atorvastatin. (11) Presence of cardiac pacemaker: Status: Chronic Code(s): Z95.0 - Presence of cardiac pacemaker (12) Diabetes mellitus: Status: Chronic Code(s): E11.9 - Type 2 diabetes mellitus without complications Qualifiers: Diabetes mellitus complication status: without complication Diabetes mellitus [facility] insulin use: without [facility] use Diabetes mellitus type: t ype 2 Qualified Code(s): E11.9 - Type 2 diabetes mellitus without complications Plan: Hemoglobin A1c at presentation to rehab is 5.8. Plan 1. Discharge home on 07/27/2024 2. Outpatient speech therapy and physical therapy at [facility]-arranged by vp digital marketing social media and crm 3. Follow-up with Dr. Jared Casper on 08/14/2024 at 9:15 AM 4. Follow-up with Dr. Roopa Gongora on 08/01/2024 at 9:30 AM 5. No driving until released by neurology/neurosurgery due to cognitive dysfunction and hx of seizures prior to craniotomy. Not on Keppra at transfer to rehab. No seizures while on rehab. Medications at Discharge Home Medications paroxetine HCl 25 mg tablet,extended release 24 hr 25 mg PO DAILY Mood 03/23/22 metformin 500 mg tablet 500 mg PO DAILY Blood sugar 01/29/24 metoprolol succinate 100 mg tablet,extended release 24 hr (Toprol XL) 100 mg PO DAILY BP #90 tabs 04/01/24 levothyroxine 100 mcg tablet 100 mcg PO DAILY thyroid 07/10/24 liothyronine 5 mcg tablet 5 mcg PO DAILY 07/10/24 meloxicam 15 mg tablet 15 mg PO DAILY 07/10/24 acetaminophen 325 mg capsule 650 mg PO Q4H PRN pain 07/18/24 atorvastatin 20 mg tablet 20 mg PO DAILY cholestrol #30 tabs 07/26/24 losartan 50 mg tablet 50 mg PO DAILY BP #30 tabs 07/26/24 tizanidine 2 mg tablet 2 mg PO Q8H PRN PRN Neck pain/muscle spasm #20 tabs 07/26/24 Hospital Course Operations - (Left posterior craniotomy on 07/14/[address] Jared Casper at [facility]) Procedures None Summary of Care Provided Minutes Spent on Discharge: 40 Hospital Course: KHARI DYSON, is a 69-year-old F with past medical history as listed below who presented to the emergency department at [facility] on 07/10/2024 after a seizure at home. CAT scan showed a 4 cm x 2.4 cm left posterior fossa mass. She was transferred to [facility] for further evaluation. She was started on Keppra at admission to [facility]. On 07/14/2024 she underwent a craniotomy for meningioma resection performed by Dr. Jared Casper. Postoperatively she was continued on Keppra and was started on Decadron. She was placed on SCDs for DVT prophylaxis. She had a Sanchez catheter while at [facility] and it was inserted on 07/15/2024 and removed on 07/16/2024. Postoperatively she was seen by PT/OT/ST and acute inpatient rehab was recommended at discharge. She was transferred to the acute inpatient rehab unit at [facility] on 07/18/2024 for 3 hours of therapy daily to restore function/independence at or near her level prior to the recent craniotomy. she was not on Keppra at the time of arrival on Rehab. Khari complained of lightheadedness at presentation to rehab. The BUN was 20 with a creatinine of 0.75 and the BUN/creatinine ratio of 26.5. Mucous membranes were dry. Hydrochlorothiazide was discontinued and we encouraged her to increase her fluid intake. The lightheadedness resolved. Hemoglobin at admission to rehab was 12.5, down from 13.2 on 07/10/2024. With better hydration the hemoglobin dropped to 11.61 1 day prior to discharge from the hospital. Hemoglobin A1c at admission was 5.8. Electrolytes, liver panel, magnesium and phosphorus were all within normal limits. Khari had some neck pain and cephalgia at presentation to rehab. She had significant spasms of the trapezius muscles and pain with palpation. She had restricted cervical rotation and sidebending. She could touch her chin to her chest without difficulty. She was treated with tizanidine at bedtime and an arthritis cream containing baclofen, lidocaine and Voltaren. This was effective in relieving the neck pain. Initially she had insomnia, I suspect secondary to steroids, and this was treated with Ambien 5 mg at bedtime. At the time of discharge she denies cephalgia and also denies neck pain. Khari was a star on rehab. At the time of discharge she is able to do 24 sit to stands in 30 seconds. She completed the cognitive timed up and go test and 29.22 seconds at mod I prior to discharge. This test requires counting backwards by 3's while standing, walking 10', turning around and walking back 10' and then sitting down. Without counting she performs this test in 12.83 seconds. She is able to ascend/descend 80 steps with 1 handrail independently with no loss of balance. She has ambulated up to 2500 feet on various surfaces independently with no assistive device and no loss of balance. She is independent or modified independent with all activities of daily living. We recommend standby assist for tub/shower transfer for the first 1 to 2 weeks following discharge. She is very fit. She struggles somewhat we we have her do cognitive functions with activity. she has dysequilibrium when trying to walk heel to toe. She is still struggling somewhat with vision/visuospatial skills, executive function and memory. ST and PT have been recommended as an OP and this was arranged for [facility] by the . Khari is ambulating with no AD and no LOB however, I feel she is still at risk for LOB if she is in a crowd and people are bumping into her. I recommended she consider a cane when she is going to be out of the house in an environment where there are a lot other people around. I told her no driving until she is released by neurology/neurosurgery to do so. I recommended to her that she attend the drivers rehabilitation program at [facility] prior to resuming driving. Khari was discharged home on 07/27/2024 and will have outpatient ST/PT at [facility]. She has follow-up appointment scheduled with Dr. Nguyen on 08/01/[address] Jared Casper on 08/14/2024. Physical Exam Const alert, oriented x3 and no apparent distress General Appearance: cooperative, well kempt and well developed HEENT normocephalic HEENT Narrative: MM are a little dry. No thrush Eyes PERRL, EOMs intact bilaterally, conjunctivae normal and no scleral icterus Eyes Narrative: No discharge eyes. No visual field. General Eye: normal appearance of both eyes Neck supple and no carotid bruits General: trachea midline Chest Chest: symmetrical chest wall rise Resp normal respiratory effort and clear to auscultation bilaterally Effort and Inspection: able to speak in complete sentences Cardio regular rate, regular rhythm, no murmurs, no rub, no gallops and peripheral pulses 2+ throughout Cardio Narrative: No ectopy GI normal to inspection, nondistended, normoactive bowel sounds, soft to palpation and non-tender GI Narrative: No guarding with palpation Extremity no calf tenderness General Extremity: Negative for edema Skin Skin Narrative: Karuna have been removed from the craniotomy incision. The incision remains intact and is healing very well. There is no chris-incisional erythema and there is no discharge from the wound. There is no warmth to palpation around the incision. There is a fluid collection around the incision at the inferior pole. No bruising. Very soft to palpation. Non-tender to palpation. Suspect this is a seroma. Wound Narrative: Karuna were removed. The incision is intact with no dehiscence and no Dc. There is no chris-incisional erythema. At the inferior pole of the incision there is a mushy fluid collection. No tenderness to palpation. she is AF. I suspect this is a small seroma or hematoma. There is no warmth to touch. Neuro oriented x3, CN's II-XII intact bilaterally, moves all extremities, no focal motor deficits and no sensory deficits noted Neuro Narrative: No visual field cuts, no ataxia, no extinction. NIHSS score 0. Psych cooperative, affect normal, speech normal, denies homicidal ideation and denies suicidal ideation Attitude: calm and engaged Activity / Motor Behavior: appropriate eye contact Weight / BMI Weight Weight: 118 lb 9.739 oz Body Mass Index (BMI) 23.3 ABG / Lab / Microbiology Data 07/26/24 06:16 07/26/24 06:16 Laboratory: Laboratory Results - last 24 hr 07/25/24 17:09: POC Glucose 153 H 07/26/24 06:16: WBC 7.9, RBC 3.68 L, Hgb 11.6 L, Hct 34.3 L, MCV 93.2, MCH 31.5, MCHC 33.8, RDW Std Deviation 44.6 H, RDW Coeff of Nora 13.0, Plt Count 284, MPV 10.2, Immature Gran % (Auto) 0.800, Neut % (Auto) 54.0, Lymph % (Auto) 29.6, M damaris % (Auto) 11.0 H, Eos % (Auto) 3.8, Baso % (Auto) 0.8, Absolute Neuts (auto) 4.3, Absolute Lymphs (auto) 2.33, Nucleated RBC % 0, Sodium 139, Potassium 3.9, Chloride 108 H, Carbon Dioxide 26.0, Anion Gap 4 L, BUN 14, Creatinine 0.66, Estim Creat Clear Calc 47.00, Est GFR (MDRD) Af Amer 113, Est GFR (MDRD) Non-Af 93, BUN/Creatinine Ratio 21.1 H, Glucose 120 H, Calcium 9.0, Magnesium 1.9 07/26/24 07:07: POC Glucose 127 H D/C Instructions Discharge Diet: Carb Control Diet and - (low fat) Weight Bearing Status: Full weight bearing Call your doctor if your incision/area has: Continuous Slow Oozing, Increased Pain/ Swelling, Increased Redness and Foul Smelling Discharge Call your doctor if you observe: Fever of 101 or Higher, Shortness of breath, Dizziness, Fainting spells, Swelling in the ankles, Chest pain, Increased palpitations (irregular heartbeat), Calf discomfort, Uncontrolled pain and - (STROKE symptoms: facial droop, slurred speech, inability to get words out, weakness on 1 side of the body and not the other, numbness on 1 side of the body and not the other, inability to maintain your balance sitting or standing, vertigo. ) Suture Line Care: Avoid Pulling/Pushing and Avoid Pinching/Bending Cleanse incision/area with: Soap & Water and - (No dressing needed. ) DC O2, CPAP, BIPAP Needs Home O2 Discharge instructions: No Pending Tests Upon Discharge: none Please Follow Up With: Roopa Gongora, When: within 7-10 days post Discharge. You also need to follow up with neurosurgery at [facility]....Dr. jared Casper...appt is for 08/14/24 and is listed later in this document. Meaningful Use Info Meaningful Use Meaningful Use Diagnoses (Choose all that apply): None applicable Ischemic Stroke Statin Dosing Therapy Reference: STATIN DOSE THERAPY REFERENCE: * Patients > 75 years receive moderate or high dose statin therapy. * Patients 75 years or YOUNGER should receive HIGH intensity statin dose unless contraindicated. You will be required to document reason for non-treatment if statin daily dose does not meet guidelines. HIGH DOSE STATIN THERAPY DAILY Atorvastatin > than or = to 40 mg Rosuvastatin > than or = to 20 mg Amlodipine + Atorvastatin > than or = to 2.5/40 mg Ezetimibe + Simvastatin 10/80 mg Simvastatin 80mg Discharge Plan Admission Admit Date/Time: 07/18/24 11:30 Primary Reason for Your Visit: Debility post craniotomy for meningioma excision. Attending Provider: Khari Rivera Primary Care Provider: Roopa Gongora Instructions Patient Instructions: Caring for Your Incision Additional Instructions / Restrictions: 1. No driving until you are released by neurology to drive. You were on an anti-epileptic drug post operatively called Jose Elias. This was discontinued when you were transferred to acute inpatient rehab. Generally patients need to be seizure free for 6 months prior to returning to driving. 2. You have a small collection of fluid under the skin around the craniotomy incision. there is no sign of infection and it is not tender to the touch. You have no fever and your white blood cell count is normal. There is no redness around the incision and no increased warmth to the touch. The incision looks great and is healing very nicely. Have Edward look at the incision daily and if there is any discharge from the incision or any redness that starts to develop around the incision you should notify the surgeon or Dr. Gongora. 3. Your balance is much better than at admission to rehab BUT, if you are in a crowd of people and someone bumps into you I suspect you could lose your balance and fall. It may be a good idea to take a cane with you when you are out and about and going to be around a lot of people. 4. If you get worsening headaches let Dr. Gongora know. Make sure to stay well hydrated.......it helps to decrease headache with standing. do not bend over at the waist if you have a headache....this can increase the headache. I am giving you a prescription for the pain cream we have been using on your neck. You can only get this cream at the [facility] retail pharmacy.......the pharmacy mixes it up and it is a combination of a muscle relaxer, anesthetic and an anti-inflammatory. Unfortunately insurance does not cover this cream. It is not very expensive and I suspect you will not need this after a few weeks. We will give you what is left in the tube when you leave the hospital. you can wait to get the prescription filled until after you run out of the tube we give you at discharge. You may not need it after that but, if you do you will have the prescription. 5. You have had muscle spasms in your neck. We have been giving you a muscle relaxer by mouth at bedtime called Zanaflex (also called tizanidine). I am giving you a prescription for this medication to have filled if you need it.......you can take 1 tab every 8 hours as needed for neck pain/muscle spasm. 6. You were taking a diuretic called hydrochlorothiazide (also called HCTZ) at admission to rehab. You were dehydrated at admission to rehab so this was discontinued. Your blood pressure has been very well-controlled off hydrochlorothiazide. 7. If you or your family have any questions after you leave rehab please do not hesitate to call me. OFFICE: [phone] CELL: [phone] NURSES STATION ON REHAB: [phone] Discharge Orders/Prescriptions Prescriptions: New tizanidine 2 mg Tablet 2 mg PO Q8H PRN PRN (Reason: Neck pain/muscle spasm) Qty: 20 0RF Rx Instructions: Take 1 tab every 8 hours as needed for neck pain/muscle spasm Continued paroxetine HCl 25 mg tablet extended release 24 hr 25 mg PO DAILY metformin 500 mg tablet 500 mg PO DAILY levothyroxine 100 mcg tablet 100 mcg PO DAILY liothyronine 5 mcg tablet 5 mcg PO DAILY acetaminophen 325 mg capsule 650 mg PO Q4H PRN (Reason: pain) losartan 50 mg tablet 50 mg PO DAILY Qty: 30 0RF metoprolol succinate [Toprol XL] 100 mg tablet extended release 24 hr 100 mg PO DAILY Qty: 90 3RF Changed atorvastatin 20 mg tablet 20 mg PO DAILY Qty: 30 0RF Rx Instructions: TAKE 1 TABLET AT BEDTIME Held meloxicam 15 mg tablet 15 mg PO DAILY Hold Instructions: do not take this medication until Dr. Gongora or neurology tells you it is OK to restart Discontinued famotidine 20 mg tablet 20 mg PO QHS oxycodone 5 mg capsule 5 mg PO Q4H PRN (Reason: pain) dexamethasone 1 mg tablet 1 mg PO Q6H hydrochlorothiazide 12.5 mg tablet 12.5 mg PO DAILY Qty: 90 3RF Referrals / Follow Up: Jared Casper-Neurosurgeon [Other] - 08/14/24 9:15 am (you will see Caty-JOHANNE) Roopa Gongora DO [Primary Care Provider] - 08/01/24 9:30 am Disposition Disposition (needs filled in before D/C Order can be placed): Home, Self Care Charges/Coding Visit Charges Inpatient E&M: 82784 Disch Hosp >30min
[2024-07-26 16:33] LABS: Bedside Glucose 117 mg/dL (74-106)
[2024-07-26 18:00] VITALS: BP 103/56; PULSE 76; RESP 17; TEMP 37.2; O2SAT 96
[2024-07-26] MEDS: Atorvastatin Calcium 20 MG Tablet PO (20:35)
[2024-07-26] MEDS: tiZANidine HCl 2 MG Tablet PO (20:35)
[2024-07-26] MEDS: oxyCODONE 5 MG Tablet PO (20:35)
[2024-07-27 06:00] VITALS: BP 129/60; PULSE 62; RESP 17; TEMP 36.6; O2SAT 95
[2024-07-27] MEDS: Levothyroxine 100 MCG Tablet PO (06:52)
[2024-07-27 07:16] LABS: Bedside Glucose 108 mg/dL (74-106)
[2024-07-27 09:21] VITALS: PULSE 66
[2024-07-27] MEDS: Metoprolol(XL)Succ 100 MG Tablet PO (09:21)
[2024-07-27] MEDS: Arthritis Pain Compound 60 CLICK TUBE TOPICAL (09:21)
[2024-07-27] MEDS: Losartan Potassium 50 MG Tablet PO (09:22)
[2024-07-27] MEDS: metFORMIN HCl 500 MG Tablet PO (09:22)
[2024-07-27] MEDS: PARoxetine CR 12.5 MG Tablet 25 MG PO (09:23)
--- NOTE | 2024-07-27 11:00 | NURSING ---
Discharge to home and verbalized understanding.
== END 2024-07-27 11:00 | disposition home or self-care (01) | DRG 949 ==
PROVIDERS: Admitting Provider Internal Medicine; PCP Internal Medicine; Referring Provider Internal Medicine; Visit Provider Internal Medicine
DX: Z48.811 Encounter for surgical aftercare following surgery on the nervous system (principal); L76.32 Postprocedural hematoma of skin and subcutaneous tissue following other procedure; D32.0 Benign neoplasm of cerebral meninges; E11.9 Type 2 diabetes mellitus without complications; E03.9 Hypothyroidism, unspecified; I10 Essential (primary) hypertension; F19.982 Other psychoactive substance use, unspecified with psychoactive substance-induced sleep disorder; F41.8 Other specified anxiety disorders; K21.9 Gastro-esophageal reflux disease without esophagitis; E78.5 Hyperlipidemia, unspecified; F09 Unspecified mental disorder due to known physiological condition; Z79.84 Long term (current) use of oral hypoglycemic drugs; Z79.52 Long term (current) use of systemic steroids; Z87.891 Personal history of nicotine dependence; Z95.0 Presence of cardiac pacemaker; Z79.899 Other long term (current) drug therapy
CPT/HCPCS: 36415; 80048; 80053; 81001; 82962; 83036; 83735; 84100; 85025; 92523; 94668; 97110; 97112; 97116; 97129; 97130; 97162; 97166; 97530; 97535; 97802

== ENCOUNTER 2024-09-25 13:00 | Outpatient (RCR) | payer MEDICARE, OTHER, SELFPAY ==
--- NOTE | 2024-07-30 12:38 | HP.PTEVAL ---
Patient's Visit Information Visit Information Visit Information: KHARI DYSON is a 69 year old F referred to Physical Therapy by Dr. Khari Rivera DO with a diagnosis of Cerebral meningioma with craniotomy. Date of Evaluation: 07/30/24 Physical Therapist: SALLY Lambert Visit Plan Frequency: 2x /Week Duration: 3 Months Plan: Discussed FGA score shows that the pt is at risk for falls. She did but a cane and will bring it in for instruction on how to use it. 2X/ week for 12 weeks for VOR (starting with smooth pursuit (vertical and horizontal with blank wall) and progressing to head movements with and without eye movements, standing balance with and without head movement and without and without foam, gait training with HEP HEP: sitting smooth pursuit vertical and horizontal blank wall (not pushing through nausea/dizziness) Subjective Subjective: Pt had a brain tumor and they removed it down at [facility] and now she needs PT and Speech for cognitive issues where she does not recognized things like she used too. She was doing 4 flights of stairs at the hospital. She feels that her balance is pretty good. She had some problems with EC and walking when she first went into the hospital but she noticed yesterday that a lot of the swelling has gone down and she feels that her walking is pretty much back to normal. She got out of the hospital on Monday. She lives with her partner, Edward. They have a 2 story home with 14 steps to the functional part of the house and she has a hand rail. She has no issues in and out of the shower or rolling over in bed. She has had no falls. Objective Objective: Gait: Walks with good stride length but does tend to step out to correct her balance FGA: 15 CATSIB: 95 LE MMT: B hip flex 4-/5 B knee ext 4/5 B knee flex 4/5 Sit to stand: Able to stand up without using her UE's on first attempt Stairs: up and down recip with 1 hand rail Standing heel and toe raises: has trouble with balance with heel raises and LOB and struggles with DF strength and balance Smooth pursuit sitting vertical (hard to track and keep focused and made dizzy after approx 3 seconds and horizontal hard to track and made dizzy after approx 3 seconds. Balance/Special Test Scores Functional Gait Assessment Score: 15 % Disability: 50.0000 CATSIB Score (Max score 120 seconds): 95 Lower Extremity Functional Score: 52 Goals Goal 1:: I HEP Goal Time Frame: 8-12 Weeks Goal 2:: Increase balance (FGA was 15 at eval) Goal Time Frame: 8-12 Weeks Goal 3:: Increase balance (CATSIB was 95 at eval) Goal Time Frame: 8-12 Weeks Goal 4:: Be able to complete 1 minute of standing smooth pursuit vertical and horizontal without being dizzy or nausea or LOB Goal Time Frame: 8-12 Weeks Rehabilitation Potential Rehabilitation Potential: Good Anticipated Interventions Patient/Client Instruction: Educate patient on: Condition and Plan of Care For the Purpose of:: To increase tolerance to activity/condition/position, To improve performance and independence with ADL's, To decrease level of supervision to perform tasks, To improve ability of physical actions for home/community/work/leisure, To improve gait and locomotor functions, To improve endurance, To improve balance and To improve safety with gait Therapeutic Exercise to Include: Strength training, Endurance training, Balance training, Coordination, Body mechanics, Postural training, Flexibilty training, Gait and locomotor training, Neuromotor development, via Neurocom Balance Mas and Dynamic Lumbar Stabilization For the Purpose of:: To improve nutrient delivery to tissue, To improve muscle performance and motor function, To improve ability to perform ADL's, To increase tolerance to activity/condition/position, To decrease level of supervision to perform tasks, To improve ability of physical actions for home/community/work/leisure, To improve gait and locomotor functions, To improve health of tissue, To increase flexibility/ROM, To improve endurance, To improve balance and To improve safety with gait Functional Training to Include: Gait training For the Purpose of:: To improve gait and locomotor functions, To improve safety with gait and To assume or resume ADL's Text: Thank you for the opportunity to evaluate your patient. For Medicare and Medicare HMO plans, please review the plan of care and approve it. It will need to be FAXED BACK to us at [phone] for Medicare purposes. For Medicare only, by signing this I certify the plan of care. Please let me know if there are questions or concerns regarding this plan of care. Physician Signature: Date:
--- NOTE | 2024-07-30 16:16 | HP.SP.EVAL ---
Visit History Visit Info Date of Eval: 07/30/24 Visit: 1 Director Of Institutional Sales: NIKKI History Attending Doctor: Referring Doctor: Reason for Referral: CRANIOTOMY Date of Onset of Diagnosis: 07/10/24 Previous speech therapy: Yes Other Relevant Medical History/Diagnoses/Surgery: Patient is a 69-year-old with past medical history as listed below who presented to the emergency department at [facility] on 07/10/2024 after a seizure at home. CAT scan showed a 4 cm x 2.4 cm left posterior fossa mass. She was transferred to [facility] for further evaluation. She was started on Keppra at admission to [facility]. On 07/14/2024 she underwent a craniotomy for meningioma resection. Postoperatively she was continued on Keppra and was started on Decadron. Postoperatively she was seen by PT/OT/ST and acute inpatient rehab was recommended at discharge. She was transferred to the acute inpatient rehab unit at [facility] on 07/18/2024 for 3 hours of therapy daily to restore function/independence at or near her level prior to the recent craniotomy. She was discharged from [facility] rehab on 07/27/24. History: Anxiety and depression, Meningioma cerebral, History of complete heart block, Diabetes mellitus, Essential hypertension, History of kidney stones, Hypothyroidism, History of seizures, GERD, Hyperlipidemia, Supraventricular tachycardia, Syncope and collapse, Sick sinus syndrome, Presence of cardiac pacemaker (11/29/19) Medications related to this diagnosis: Medications: paroxetine HCl 25 mg tablet, metformin 500 mg tablet, metoprolol succinate 100 mg , levothyroxine 100 mcg tablet, liothyronine 5 mcg tablet,meloxicam 15 mg tablet, acetaminophen 325 mg capsule, atorvastatin 20 mg tablet, losartan 50 mg tablet tizanidine Smoking Status: Former smoker Diagnosis Diagnosis: Mild cognitive linguistic deficits Pain Is pain an issue with your current prescribed condition?: No Personal Preferred language: Albanian Patient Allergies Allergies Allergies: Allergies sertraline (From Zoloft) Allergy (Mild, Verified 07/10/24 10:34) seizure enoxaparin sodium (From Lovenox) Allergy (Verified 07/10/24 10:34) Anaphylaxis Sulfa (Sulfonamide Antibiotics) Allergy (Verified 07/10/24 10:34) Rash Objective Cog/Ling/Com Test Administered Fccfeztnz-Ajhzdcxiys-Mfgxjajrdqzrz Assessment Administered: Yes Jtxxktwkt-Bpvoobhxtk-Jyfrgevqyiaos Assessment: Cognitive ? Linguistic skills were evaluated using patient/family interview, skilled observation and informal evaluation through tasks completed by the patient. Orientation Orientation: Person, Place, Birthdate and Medical Diagnosis Answer Yes/No Questions Simple: WNL Complex: WNL Automatic Sequences Automatic Sequences: WNL Conversational Tasks Conversational Tasks: Mild Comments: Patient intermittently had to take time to formulate sentences. She reported that she has to stop and think how to say think. She reported that at times she has difficulty in determining how to say something and noted at least three times during the hour evaluation she demonstrated pauses in the conversation to think of words. Medication Completing medications independently: [facility] Numerical Skills Balancing Checkbook [place]: Patient uses a banking yovana on her phone to complete banking tasks including having bills on autopay. Organization Adding members to categories: [facility] Information Gathering Information Gathering: [facility] Cause & Effect Cause & Effect: [facility] Verbal Sequencing Verbal Sequencing: Mild Problem Solving Simple: WNL Complex: Mild Judgement & Reasoning Judgement/Reasoning: Mild Cognitive Linguistic Supervision/Saftey Awareness of deficits: WNL Being left home alone: WNL Managing medications: L Managing finances: [facility] Executive Function Comments Comments: Patient is doing very well considering she had a craniotomy 3 weeks ago. She is exhibiting higher level cognitive deficits along with mild language deficits. She reported that she has difficulty with attention to tasks which leads to mistakes. Example given was that she had family members for supper and needed to count how many people three times to determine the number she needed to set. She uses a calendar on her phone for recall of daily tasks. She has independently completed her weekly pill box one time (only been home three days) with partner double checking it with no errors. She gave incomplete answers to higher level problem solving tasks. She reported that her thinking is slower and she needs increased time to create her answers/comments. Reference: Neuro-QoL instrument In past 7 days I had to read something several times to understand it: Rarely (once) My thinking was slow: Very often (several times a day) I had to work really hard to pay attention or i would make a mistake: Often (once a day) I had trouble concentrating: Very often (several times a day) How much DIFFICULTY do you currently reading & following complex instructions (e.g. directions for new medication: None planning for & keeping appts that are not part of weekly routine: None managing your time to do most of your daily activities: None learning new tasks or instructions: None Neuro-QOL Score Raw Score: 28 T - Score: 42.9 Radiation Oncology Patient Plan Plan Plan: Speech therapy is warranted for mild cognitive linguistic deficits following her craniotomy for removal of meningioma. Recommendations Treatment Warranted: Yes Treatment Warranted: Receptive/ Expressive Language and Cognition Progress Prognosis: Good Frequency Frequency: 1x/Week Duration: 2 Months Visits in this POC: 8 Patient/Family Goal Patient/Family Goal: Patient stated she would like to multitask like she did before her surgery. Goals that are Established Determination:: Goals will be added/modified as deemed necessary and appropriate. Therapy will be discontinued when results of re-evaluation indicate therapy is no longer needed or lack of progress has been documented. Goal #1-5 Goal #1: Patient will use word finding strategies with one cue from therapist during a 10 minute conversation. Goal #2: Patient will complete complex problem solving tasks, including but not limited to deductions and word problems with calculations, on 4/5 trials with minimal cues. Goal #3: Patient will complete two tasks accurately ( example - holding a conversation and playing cards or completing a worksheet with interruptions) to facilitate attention to tasks on 4/5 trials on 2/3 consecutive sessions. Education Patient has Indicated that the Following Identified Educational Needs: None The Patient has indicated that they have no educational or learning abilities that may effect their care.: Yes Patient Instruction Patient Education: Diagnosis, Treatment Plan and Goals Person Taught: Patient Response to teaching: Verbalize Understanding and Has Prior Knowledge
--- NOTE | 2024-09-11 13:48 | HP.PTREVAL ---
Re-Evaluation Intro: Dr. Khari Rivera, DO, It has been my pleasure to treat KAHRI DYSON over the last 6 visits for Cerebral meningioma with craniotomy. Please see the progress note below for an update on the physical therapy plan of care! Subjective Subjective: Pt has been feeling pretty good. She is still gettin GONZALEZ. She is still getting test results to see if she will need radiation. If she looks down a lot she will have blurriness for about an hour when she looks back up. She can do all she needs to do at home without assistance. She can do quick turns. She has to wait 6 months to get eyes checked again and get cataracts done. Dr is saying he thinks that the vision will come back. She feels that she is back to her baseline. Objective Objective/Function: She is still dizzy with smooth pursuit in standing after approx 20 seconds Sitting head and eyes move together horizontal X 23 seconds and had increase dizziness FGA: 27 CATSIB 120/120 Plan Plan Plan: See pt in 2 weeks and she will work on standing horizontal and vertical smooth pursuit and standing head and eyes move together - Balance/Gait/Functional tests Balance/Special Test Scores Functional Gait Assessment Score: 27 % Disability: 10.0000 CATSIB Score (Max score 120 seconds): 95 Lower Extremity Functional Score: 68 TUG Test Time Seconds: 7.74 Tug Test: <10 sec.=free mobile 30 Second Chair Rise Test Seconds: 14 Goals Goals Goal 1:: I HEP Goal Time Frame: 8-12 Weeks Goal Progress: Goal Met Goal 2:: Increase balance (FGA was 15 at eval) Goal Time Frame: 8-12 Weeks Goal Progress: Goal Met Goal 3:: Increase balance (CATSIB was 95 at eval) Goal Time Frame: 8-12 Weeks Goal Progress: Goal Met Goal 4:: Be able to complete 1 minute of standing smooth pursuit vertical and horizontal without being dizzy or nausea or LOB Goal Time Frame: 8-12 Weeks Goal Progress: Progressing Anticipated Interventions Anticipated Interventions Patient/Client Instruction: Educate patient on: Condition and Plan of Care For the Purpose of:: To increase tolerance to activity/condition/position, To improve performance and independence with ADL's, To decrease level of supervision to perform tasks, To improve ability of physical actions for home/community/work/leisure, To improve gait and locomotor functions, To improve endurance, To improve balance and To improve safety with gait Therapeutic Exercise to Include: Strength training, Endurance training, Balance training, Coordination, Body mechanics, Postural training, Flexibilty training, Gait and locomotor training, Neuromotor development, via Neurocom Balance Mas and Dynamic Lumbar Stabilization For the Purpose of:: To improve nutrient delivery to tissue, To improve muscle performance and motor function, To improve ability to perform ADL's, To increase tolerance to activity/condition/position, To decrease level of supervision to perform tasks, To improve ability of physical actions for home/community/work/leisure, To improve gait and locomotor functions, To improve health of tissue, To increase flexibility/ROM, To improve endurance, To improve balance and To improve safety with gait Functional Training to Include: Gait training For the Purpose of:: To improve gait and locomotor functions, To improve safety with gait and To assume or resume ADL's Re-Evaluation Ending Re-evaluation ending: Please do not hesitate to contact me at [phone] by phone or if you have questions or concerns regarding this new plan of care! Sincerely, Christine Gomez, MPT
--- NOTE | 2024-09-25 13:23 | HP.PTDCSUM ---
Discharge Summary D/C summary: It has been my pleasure to treat KHARI DYSON referred by Dr. Khari Rivera DO, with the diagnosis of Cerebral meningioma with craniotomy for a total of 7 visit(s). Discharge Date: 09/25/24 Please see the following information for a summary of their discharge status. Subjective Subjective: Overall she thinks that the eye exercises are getting much better. Overall Improvement % Improvement: 100 Objective Objective/Function: Sitting smooth pursuit horizontal... no dizziness but still not a smooth motion X 30 seconds. smooth pursuits horizontal X 30 seconds in sitting with no dizziness sitting head and eyes move together from one target on the R to the one on the L X 1 min with no dizziness and then repeated in standing ( no LOB or dizziness) Walking with head turns up/down or R/L on command with no LOB or dizziness....she did have occ slight sway when turning head to the L but no LOB Goals Goal 1:: I [facility] Goal Progress: Goal Met Goal 2:: Increase balance (FGA was 15 at eval) Goal Progress: Goal Met Goal 3:: Increase balance (CATSIB was 95 at eval) Goal Progress: Goal Met Goal 4:: Be able to complete 1 minute of standing smooth pursuit vertical and horizontal without being dizzy or nausea or LOB Goal Progress: Goal Met Plan Plan: Pt to be discharged to [facility] to work on sitting smooth pursuit horizontal Pt to work on standing head and eyes moving between targets R and L and walking with head turns. D/C Information Discharge Comments: DC PT to [facility] d/c sentence: If there are questions or concerns regarding this patient's physical therapy, please feel free to call me at [phone]. Thank you for the referral of this patient. Sincerely, Christine Gomez, MPT Balance/Gait/Functional tests Balance/Special Test Scores Functional Gait Assessment Score: 27 % Disability: 10.0000 CATSIB Score (Max score 120 seconds): 95 Lower Extremity Functional Score: 68 TUG Test Time Seconds: 7.74 Tug Test: <10 sec.=free mobile 30 Second Chair Rise Test Seconds: 14 Improvement % Improvement: 100
--- NOTE | 2024-09-25 13:25 | HP.PTDCSUM ---
Discharge Summary D/C summary: It has been my pleasure to treat KHARI DYSON referred by Dr. Khari Rivera DO, with the diagnosis of Cerebral meningioma with craniotomy for a total of 7 visit(s). Discharge Date: 09/25/24 Please see the following information for a summary of their discharge status. Subjective Subjective: Overall she thinks that the eye exercises are getting much better. Overall Improvement % Improvement: 100 Objective Objective/Function: Sitting smooth pursuit horizontal... no dizziness but still not a smooth motion X 30 seconds. smooth pursuits horizontal X 30 seconds in sitting with no dizziness sitting head and eyes move together from one target on the R to the one on the L X 1 min with no dizziness and then repeated in standing ( no LOB or dizziness) Walking with head turns up/down or R/L on command with no LOB or dizziness....she did have occ slight sway when turning head to the L but no LOB Goals Goal 1:: I [facility] Goal Progress: Goal Met Goal 2:: Increase balance (FGA was 15 at eval) Goal Progress: Goal Met Goal 3:: Increase balance (CATSIB was 95 at eval) Goal Progress: Goal Met Goal 4:: Be able to complete 1 minute of standing smooth pursuit vertical and horizontal without being dizzy or nausea or LOB Goal Progress: Goal Met Plan Plan: Pt to be discharged to [facility] to work on sitting smooth pursuit horizontal Pt to work on standing head and eyes moving between targets R and L and walking with head turns. D/C Information Discharge Comments: DC PT to [facility] d/c sentence: If there are questions or concerns regarding this patient's physical therapy, please feel free to call me at [phone]. Thank you for the referral of this patient. Sincerely, Christine Gomez, MPT Balance/Gait/Functional tests Balance/Special Test Scores Functional Gait Assessment Score: 27 % Disability: 10.0000 CATSIB Score (Max score 120 seconds): 95 Lower Extremity Functional Score: 68 TUG Test Time Seconds: 7.74 Tug Test: <10 sec.=free mobile 30 Second Chair Rise Test Seconds: 14 Improvement % Improvement: 100
== END 2024-09-25 19:00 | disposition home or self-care (01) ==
LOC: PT 13:00
PROVIDERS: PCP Internal Medicine; Referring Provider Internal Medicine; Visit Provider Internal Medicine
DX: D32.0 Benign neoplasm of cerebral meninges (principal); Z98.890 Other specified postprocedural states; R41.841 Cognitive communication deficit
CPT/HCPCS: 92507; 92523; 97110; 97162; 97530

== ENCOUNTER → 2025-04-09 | Outpatient (CLI) | payer MEDICARE, OTHER, SELFPAY ==
[2025-04-09 10:40] LABS: Prothrombin Time (Protime)PT. 15.2 SECONDS (11.7-14.9)
== END | disposition home or self-care (01) ==
LOC: LABSPEC 10:19
PROVIDERS: PCP Internal Medicine; Referring Provider Internal Medicine; Visit Provider Internal Medicine
DX: G08 Intracranial and intraspinal phlebitis and thrombophlebitis (principal)
CPT/HCPCS: 85610

== ENCOUNTER → 2025-04-14 | Outpatient (CLI) | payer MEDICARE, OTHER, SELFPAY ==
[2025-04-14 12:24] LABS: Prothrombin Time (Protime)PT. 19.2 SECONDS (11.7-14.9)
== END | disposition home or self-care (01) ==
LOC: MTLAB 10:19
PROVIDERS: PCP Internal Medicine; Referring Provider Internal Medicine; Visit Provider Internal Medicine
DX: G08 Intracranial and intraspinal phlebitis and thrombophlebitis (principal)
CPT/HCPCS: 36415; 85610

== ENCOUNTER 2025-05-02 10:53 | Outpatient (RCR) | payer MEDICARE, OTHER, SELFPAY ==
[2025-05-02 12:18] LABS: Prothrombin Time (Protime)PT. 20.1 SECONDS (11.7-14.9)
== END 2025-05-02 18:00 | disposition home or self-care (01) ==
LOC: MTLAB 10:53
PROVIDERS: PCP Internal Medicine; Referring Provider Internal Medicine; Visit Provider Internal Medicine
DX: Z79.01 Long term (current) use of anticoagulants (principal)
CPT/HCPCS: 36415; 85610

== ENCOUNTER → 2025-05-29 | Outpatient (CLI) | payer MEDICARE, OTHER, SELFPAY ==
[2025-05-29 18:13] LABS: Free T3 3.1 pg/mL (2.18-3.98)
== END | disposition home or self-care (01) ==
LOC: MTLAB 14:14
PROVIDERS: PCP Internal Medicine; Referring Provider Internal Medicine; Visit Provider Internal Medicine
DX: E03.9 Hypothyroidism, unspecified (principal)
CPT/HCPCS: 36415; 84443; 84481

== ENCOUNTER 2025-06-03 15:24 | Outpatient (RCR) | payer MEDICARE, OTHER, SELFPAY ==
[2025-05-12 23:02] LABS: Prothrombin Time (Protime)PT. 27.1 SECONDS (11.7-14.9)
[2025-05-26 18:43] LABS: Prothrombin Time (Protime)PT. 21.2 SECONDS (11.7-14.9)
[2025-06-03 18:14] LABS: Prothrombin Time (Protime)PT. 22.7 SECONDS (11.7-14.9)
== END 2025-06-07 18:00 | disposition home or self-care (01) ==
LOC: MTLAB 15:24
PROVIDERS: PCP Internal Medicine; Referring Provider Internal Medicine; Visit Provider Internal Medicine
DX: Z79.01 Long term (current) use of anticoagulants (principal)
CPT/HCPCS: 36415; 85610

== ENCOUNTER → 2025-06-16 | Outpatient (CLI) | payer MEDICARE, OTHER, SELFPAY ==
--- NOTE | 2025-06-16 13:09 | ECHOD_ITS ---
Reason For Study Reason For Study: Ensure EF is Stable Procedure This was a 2D Doppler, Color Flow transthoracic echocardiogram. Myocardial strain analysis was performed in this exam to aid in the assessment of cardiac function. The patient is in sinus rhythm. Exam performed in department. Left Ventricle Normal LV size. The global longitudinal strain = -20.8 % (normal). The left ventricular ejection fraction is 60 %. Stage 1 diastolic dysfunction. No regional wall motion abnormalities noted. Right Ventricle Normal RV size. ICD or pacer leads identified within the right ventricle. Normal systolic function. Atria Normal left atrium. Normal right atrium. ICD or pacer leads identified within the right atrium. Mitral Valve Normal mitral valve. Tricuspid Valve Normal tricuspid valve. Mild (1+) tricuspid valve insufficiency. Pulmonary artery systolic pressure is 26 mmHg. Aortic Valve Trisinus/trileaflet aortic valve. Pulmonic Valve Normal pulmonic valve. Great Vessels Normal aortic root. The pulmonary artery is normal size. Inferior vena cava collapse with sniff. Pericardium/Pleural No pericardial effusion. MMode/2D Measurements & Calculations LVIDd: 4.5 cm IVSd: 0.81 cm Ao root diam: 2.7 cm LVIDs: 3.0 cm LVPWd: 0.63 cm RVDd: 2.8 cm FS: 34.7 % LAV(MOD-bp): 34.6 ml LVAd ap4: 19.5 cm2 SV(MOD-sp4): 29.0 ml LAV(MOD-bp) Indexed: 22.9 ml/m2 LVLd ap4: 6.1 cm SI(MOD-sp4): 19.1 ml/m2 LAV(MOD-sp2): 31.0 ml EDV(MOD-sp4): 50.2 ml LAV(MOD-sp4): 34.2 ml EDV(sp4-el): 52.9 ml LVAs ap4: 11.8 cm2 LVLs ap4: 5.4 cm ESV(MOD-sp4): 21.2 ml ESV(sp4-el): 21.8 ml EF(MOD-sp4): 57.7 % EF(sp4-el): 58.8 % SV(sp4-el): 31.1 ml LA A4 area: 14.9 cm2 LA dimension(2D): 3.2 cm RA A4 area: 13.1 cm2 TAPSE: 2.1 cm Time Measurements MV dec time: 0.17 sec Doppler Measurements & Calculations MV E max johan: 53.9 cm/sec Lat Peak E' Johan: 8.4 cm/sec Med Peak E' Johan: 7.9 cm/sec MV A max johan: 67.4 cm/sec E/E' lat: 6.4 E/E' med: 6.8 MV E/A: 0.80 MV V2 max: 87.1 cm/sec MV P1/2t max johan: 60.4 cm/sec Ao V2 max: 116.2 cm/sec MV max P.0 mmHg MV P1/2t: 61.0 msec Ao max P.4 mmHg MV V2 mean: 39.7 cm/sec Ao V2 mean: 80.4 cm/sec MV mean P.77 mmHg MV dec slope: 289.9 cm/sec2 Ao mean P.9 mmHg MV V2 VTI: 23.9 cm MVA(P1/2t): 3.6 cm2 Ao V2 VTI: 26.9 cm AV (velocity ratio): 0.91 LV V1 max: 110.1 cm/sec PA V2 max: 88.8 cm/sec TR max joahn: 241.0 cm/sec LV V1 max P.9 mmHg PA V2 mean: 53.1 cm/sec TR max P.2 mmHg LV V1 mean P.5 mmHg LV V1 mean: 74.0 cm/sec LV V1 VTI: 24.6 cm ECHO/Echo Complete Interpretation Summary Normal LV size. The global longitudinal strain = -20.8 % (normal). The left ventricular ejection fraction is 60 %. Stage 1 diastolic dysfunction. Ordering Physician: Willis Wise Referring Physician: Willis Wise Performed By: Alexi June RCS
== END | disposition home or self-care (01) ==
PROVIDERS: PCP Internal Medicine; Referring Provider Nurse Practitioner Family; Visit Provider Nurse Practitioner Family
DX: I10 Essential (primary) hypertension (principal); Z98.890 Other specified postprocedural states; E78.5 Hyperlipidemia, unspecified; Z95.0 Presence of cardiac pacemaker; I47.10 Supraventricular tachycardia, unspecified; I66.9 Occlusion and stenosis of unspecified cerebral artery
CPT/HCPCS: 93306

== ENCOUNTER 2025-06-30 13:54 | Outpatient (RCR) | payer MEDICARE, OTHER, SELFPAY ==
[2025-06-16 17:55] LABS: Prothrombin Time (Protime)PT. 15.0 SECONDS (11.7-14.9)
[2025-06-30 17:55] LABS: Prothrombin Time (Protime)PT. 24.9 SECONDS (11.7-14.9)
== END 2025-06-30 18:00 | disposition home or self-care (01) ==
LOC: MTLAB 13:54
PROVIDERS: PCP Internal Medicine; Referring Provider Internal Medicine; Visit Provider Internal Medicine
DX: Z79.01 Long term (current) use of anticoagulants (principal)
CPT/HCPCS: 36415; 85610